=== PATIENT | male | born 1950 | race Caucasian/White ===

== ENCOUNTER 2018-09-17 12:58 | Observation (INO) | payer OTHER, BC ==
--- OUTSIDE RECORDS SUMMARY | 2018-09-17 13:02 | XMS REPORT | Continuity of Care Document ---
:1950 Author Organization Interface Problems Problem Status Onset Classification Date Comments Source Date Reported , PAIN IN Active [facility] LEFT HIP, 8 [facility] UNILATERAL PRIM Osteoarthritis< Active Problem 11/02/[address] 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 UNSPECIFIED [facility] Medications Medication Details Route Status Patient Ordering Order Source Instructions Provider Date Acetaminophen 1 tab, PO, Active 325 MG / Q4-6H, PRN Pain, 2017 [facility] Hydrocodone X 5 day, # 50 [facility] Bitartrate 10 MG tab, 0 Oral Tablet Refill(s), given [[place] 10/325] to patient gabapentin 300 300 mg=1 cap, Active MG Oral Capsule PO, Bedtime, for 2017 [facility] nerve pain. [place] increase to BID PRN, # 15 cap, 0 Refill(s) meloxicam 15 mg 15 mg=1 tab, PO, Active oral tablet Daily, # 30 tab, 2017 [facility] 0 Refill(s) [facility] cefadroxil 500 500 mg=1 cap, Active mg oral capsule PO, Q12H, X 7 2017 [facility] day, # 14 cap, 0 City Refill(s) Aspirin 81 MG 81 mg=1 tab, PO, Active Enteric Coated BID, # 60 tab, 0 2017 [facility] Tablet Refill(s) [facility] meloxicam 15 mg, 2 tab, Inactive Route: PO, Drug 2017 [facility] form: TAB, City Daily, Dosing Weight 92.727, kg, Start date: 10/30/17 9:00:00 CDT, Duration: 30 day, Stop date: 11/28/17 9:00:00 CDTNotes: (Same as: Brissa) Aspirin 325 MG 325 mg, 1 tab, Inactive Enteric Coated Route: PO, Drug 2017 [facility] Tablet form: ECTAB, City Daily, Dosing Weight 92.727, kg, Start date: 10/30/17 9:00:00 CDT, Duration: 30 day, Stop date: 11/28/17 9:00:00 CDTNotes: (Do Not Crush) Do not crush or chew. Sodium Chloride 1 drp, Route: No Longer 0.854 MEQ/ML BOTH EYES, BID, [address] Ophthalmic Drug form: SOLN, [facility] Solution [[facility] Start date: 128] 10/29/17 21:30:00 CDT, Duration: 30 day, Stop date: 11/28/17 17:00:00 CDTNotes: Ophthalmic solution (Same as: Adsorbonac, [facility] 128) Restasis 1 drp, Route: No Longer BOTH EYES, Q12H, [address] Drug form: DROP, [facility] Start date: 10/29/17 21:00:00 CDT, Duration: 30 day, Stop date: 11/28/17 9:00:00 CDTNotes: (Same as: Restasis) gabapentin 300 300 mg, 1 cap, No Longer MG Oral Capsule Route: PO, Drug [address] form: CAP, [facility] Bedtime, Dosing Weight 92.727, kg, Start date: 10/29/17 21:00:00 CDT, Duration: 30 day, Stop date: 11/27/17 21:00:00 CDTNotes: (Same as: Neurontin) Saline Flush 10 ml, Route: No Longer 0.9% IVP, Drug Form: [address] INJ, Dosing [facility] Weight 92.727, kg, Q12H, Start date: 10/29/17 21:00:00 CDT, Duration: 30 day, Stop date: 11/28/17 9:00:00 CDTNotes: preservative free. Mupirocin 1 appl, Route: No Longer NASAL, Q12H, [address] Drug form: OINT, [facility] Start date: 10/29/17 21:00:00 CDT, Duration: 30 day, Stop date: 11/28/17 9:00:00 CDT Vancomycin 1.25 gm, Route: No Longer IVPB, [id number], Active 2018 [facility] Dosing Weight [facility] 92.727, kg, Time Critical Medication, Start date: 10/29/17 18:30:00 CDT, Duration: 2 doses or times, Stop date: 10/30/17 6:30:00 CDT, Pharmacy to adjust dose for renal function, ABX Indication: Surgical Pro...Notes: TIME CRITICAL MEDICATION (Same As: Vancocin) Infusion rate 2001 mg: infuse over 2.5 hours For adult patients only: Round to nearest 250 mg per Medical Staff approval MEDICATION WASTE Product Size: 1000 mg Product Wasted: ___ mg Docusate Sodium 100 mg, 1 cap, No Longer 100 MG Oral Route: PO, Drug [address] Capsule form: CAP, BID, [facility] Dosing Weight 92.727, kg, Start date: 10/29/17 17:00:00 CDT, Duration: 30 day, Stop date: 11/28/17 9:00:00 CDTNotes: (Same as: Colace) (Do Not Crush) Ofirmev 1,000 mg, 2 tab, No Longer Route: PO, Drug [address] form: TAB, Q8H, [facility] Dosing Weight 92.727, kg, for > or=50 kg, Start date: 10/29/17 16:00:00 CDT, Duration: 30 day, Stop date: 11/28/17 8:00:00 CDTNotes: Max acetaminophen 4000 mg/day (4 gm/day). (Same as: Tylenol Extra Strength) Cefazolin 2 gm, Route: No Longer IVPB, [id number], Active 2017 [facility] Dosing Weight [facility] 92.727, kg, Start date: 10/29/17 13:30:00 CDT, Duration: 3 doses or times, Stop date: 10/30/17 1:30:00 CDT, ABX Indication: Surgical ProphylaxisNotes : (Same As: Charlotte Velasquez) MEDICATION WASTE Product Size: 1000 mg Product Wasted: ___ mg Acetaminophen 2 tab, Route: No Longer 325 MG / PO, Drug Form: [address] Hydrocodone TAB, Dosing [facility] Bitartrate 10 MG Weight 92.727, Oral Tablet kg, Q4H, PRN [[place] 10/325] Pain Score 7-10, Start date: 10/29/17 9:24:00 CDT, Duration: 30 day, Stop date: 11/28/17 9:23:00 CDTNotes: Do not exceed 4gm/day of acetaminophen. (Same as: [place] 325/10) Benadryl 25 mg, 1 cap, No Longer Route: PO, Drug Active 2017 [facility] form: CAP, [facility] Bedtime, Dosing Weight 92.727, kg, PRN Insomnia, Start date: 10/29/17 9:24:00 CDT, Duration: 30 day, Stop date: 11/28/17 9:23:00 CDTNotes: (Same as: Benadryl) Ondansetron 4 mg, Route: Inactive IVP, Drug form: 2017 [facility] INJ, Q8H, Dosing City Weight 92.727, kg, PRN Nausea, Start date: 10/29/17 9:24:00 CDT, Duration: 30 day, Stop date: 11/28/17 9:23:00 CDT Bisacodyl 10 mg, 2 tab, No Longer Route: PO, Drug Active 2017 [facility] form: ECTAB, [place] Daily, Dosing Weight 92.727, kg, PRN Constipation, Start date: 10/29/17 9:24:00 CDT, Duration: 30 day, Stop date: 11/28/17 9:23:00 CDTNotes: (Same As: Dulcolax, Correctol) (Do Not Crush) "Do Not Crush" Morphine 4 mg, 1 mL, No Longer Route: IVP, Drug Active 2017 [facility] form: SOLN, Q6H, [facility] Dosing Weight 92.727, kg, PRN Pain Score 7-10, Start date: 10/29/17 9:24:00 CDT, Stop date: 11/28/17 9:23:00 CDTNotes: (Same as:MORPhine Sulfate) 24 HR tramadol 100 mg, 2 tab, No Longer hydrochloride Route: PO, Drug Active 2017 [facility] 100 MG Extended form: TAB, Q6H, City Release Tablet PRN Pain Score 6-10, Start date: 10/29/17 9:24:00 CDT, Duration: 30 day, Stop date: 11/28/17 9:23:00 CDTNotes: Not to exceed 400mg/day. (Same As: Ultram) Saline Flush 10 ml, Route: No Longer 0.9% IVP, Drug Form: [address] INJ, Dosing [facility] Weight 92.727, kg, PRN, PRN Line Flush, Start date: 10/29/17 9:24:00 CDT, Duration: 30 day, Stop date: 11/28/17 9:23:00 CDTNotes: preservative free. Acetaminophen 1 tab, Route: No Longer 325 MG / PO, Drug Form: [address] Hydrocodone TAB, Dosing [facility] Bitartrate 5 MG Weight 92.727, Oral Tablet kg, Q4H, PRN [[place] 5/325] Pain Score 1-3, Start date: 10/29/17 9:24:00 CDT, Duration: 30 day, Stop date: 11/28/17 9:23:00 CDTNotes: (Same as: [place] 325/5) Do not exceed 4gm/day of acetaminophen. Lactated Ringers 1,000 mL, Rate: No Longer IV 1,000 mL 75 ml/hr, Infuse [address] over: 13.3 hr, [facility] Route: IV, Dosing Weight 92.727 kg, Total Volume: 1,000, Start date: 10/29/17 9:24:00 CDT, Duration: 30 day, Stop date: 11/28/17 9:23:00 CDT, 2.18, m2 ketOROLAC (ANES) IV, ONCE Inactive [address] dexamethasone Route: IV, Drug Inactive (ANES) form: INJ, ONCE, 2017 [facility] Stop date: [facility] 10/29/17 9:00:00 CDT Ondansetron 4 MG 4 mg, 1 tab, Inactive Disintegrating Route: PO, Drug 2017 [facility] Tablet form: TABDIS, [facility] Q8H, Dosing Weight 92.727, kg, Start date: 10/29/17 8:00:00 CDT, Duration: 30 day, Stop date: 11/28/17 0:00:00 CDTNotes: (Same as: Zofran ODT) ceFAZolin (ANES) Route: IV, Drug Inactive form: INJ, ONCE, 2017 [facility] Stop date: [facility] 10/29/17 7:53:00 CDT ePHEDrine (ANES) Route: IV, Drug Inactive form: INJ, ONCE, 2017 [facility] Stop date: [facility] 10/29/17 7:43:00 CDT bupivacaine Route: Inactive 10/29/ (ANES) INTRATHECAL, 2017 [facility] Drug Form: INJ, [facility] ONCE, Stop date: 10/29/17 7:38:00 CDT morphine Sulfate Route: Inactive 10/29/ (ANES) INTRATHECAL, 2017 [facility] Drug form: INJ, City ONCE, Stop date: 10/29/17 7:38:00 CDT lidocaine (ANES) Route: IV, Drug Inactive form: INJ, ONCE, 2017 [facility] Stop date: [facility] 10/29/17 7:38:00 CDT midazolam (ANES) Route: IV, Drug Inactive form: SOLN, 2017 [facility] ONCE, Stop date: [facility] 10/29/17 7:28:00 CDT acetaminophen Route: IV, Drug Inactive (ANES) 10 mg form: INJ, Start 2017 [facility] date: 10/29/17 [facility] 7:27:00 CDT, Stop date: 10/29/17 8:27:00 CDT Naloxone 0.4 mg, 1 mL, Inactive Route: IVP, Drug 2017 [facility] form: INJ, City Q2MIN, Dosing Weight 92.727, kg, PRN Narcotic Reversal, Start date: 10/29/17 7:23:00 CDT, Duration: 8 doses or times, Stop date: Limited # of timesNotes: Same as Narcan Atropine 0.2 mg, 0.5 mL, Inactive Route: IVP, Drug 2017 [facility] form: INJ, City Q5Min, Dosing Weight 92.727, kg, PRN Other -See Comment, as needed; for symptomatic pulse rate Notes: MEDICATION WASTE Product Size: 0.4 mg Product Wasted: ___ mg Ephedrine 5 mg, 1 mL, Inactive Route: IVP, Drug 2017 [facility] form: INJ, City Q5Min, Dosing Weight 92.727, kg, PRN Low Blood Pressure, Start date: 10/29/17 7:23:00 CDT, Duration: 30 day, Stop date: 11/28/17 7:22:00 CDTNotes: final concentration 5 mg/mL Glycopyrrolate 0.2 mg, 1 mL, Inactive Route: IVP, Drug 2017 [facility] form: INJ, City Q5Min, Dosing Weight 92.727, kg, PRN Bradycardia, Start date: 10/29/17 7:23:00 CDT, Duration: 3 doses or times, Stop date: Limited # of timesNotes: (Same as: Patsy) Meperidine 12.5 mg, 0.25 Inactive mL, Route: IV2017 [facility] Drug form: INJ, City Q30Min, Dosing Weight 92.727, kg, PRN Other -See Comment, For shivering, Start date: 10/29/17 7:23:00 CDT, Duration: 2 doses or times, Stop date: Limited # of timesNotes: (Same As: Demerol) Hydromorphone 0.5 mg, 0.25 mL, Inactive Route: IVP, Drug 2017 [facility] form: INJ, City Q5Min, Dosing Weight 92.727, kg, PRN Pain Score 7-10, Start date: 10/29/17 7:23:00 CDT, Duration: 4 doses or times, Stop date: Limited # of timesNotes: Same as Dilaudid Flumazenil 0.2 mg, 2 mL, Inactive Route: IVP, Drug 2017 [facility] form: INJ, PRN, City Dosing Weight 92.727, kg, PRN Benzodiazepine Reversal, Initial dose, Start date: 10/29/17 7:23:00 CDT, Duration: 30 day, Stop date: 11/28/17 7:22:00 CDTNotes: (Same as: Romazicon) Morphine 2 mg, 0.5 mL, Inactive Route: IVP, Drug 2017 [facility] form: SOLN, City Q5Min, Dosing Weight 92.727, kg, PRN Pain Score 4-6, Start date: 10/29/17 7:23:00 CDT, Duration: 5 doses or times, Stop date: Limited # of timesNotes: (Same as:MORPhine Sulfate) Promethazine 6.25 mg, 0.25 Inactive mL, Route: IVPB, 2017 [facility] ONCE, Dosing City Weight 92.727, kg, PRN Nausea & Vomiting, Start date: 10/29/17 7:23:00 CDTNotes: Do not give IV push. (Same as: Phenergan) Dexamethasone 4 mg, 1 mL, Inactive Route: IVP, Drug 2017 [facility] form: INJ, ONCE, [facility] Dosing Weight 92.727, kg, PRN Nausea & Vomiting, Start date: 10/29/17 7:23:00 CDTNotes: Concentration: 4mg/ml Ondansetron 4 mg, 2 mL, Inactive Route: IVP, Drug 2017 [facility] form: INJ, ONCE, [facility] Dosing Weight 92.727, kg, PRN Nausea & Vomiting, Start date: 10/29/17 7:23:00 CDTNotes: (Same as: Zofran) MEDICATION WASTE Product Size: 4 mg Product Wasted: ___ mg Calcium Chloride 1,000 mL, Rate: Inactive 0.0014 MEQ/ML / 125 ml/hr, 2017 [facility] Potassium Infuse over: 8 [facility] Chloride 0.004 hr, Route: IV, MEQ/ML / Sodium Dosing Weight Chloride 0.103 92.727 kg, Total MEQ/ML / Sodium Volume: 1,000, Lactate 0.028 Start date: MEQ/ML 10/29/17 7:23:00 Injectable CDT, Duration: Solution 30 day, Stop date: 11/28/17 7:22:00 CDT, 2.18, m2 Periactin 4 mg, 1 tab, No Longer Route: PO, Drug Active 2017 [facility] form: TAB, TID, [facility] Dosing Weight 92.727, kg, PRN Itching, Start date: 10/29/17 7:22:00 CDT, Duration: 30 day, Stop date: 11/28/17 7:21:00 CDTNotes: (Same As: Periactin) Benadryl 25 mg, 1 cap, No Longer Route: PO, Drug Active 2017 [facility] form: CAP, TID, [facility] Dosing Weight 92.727, kg, PRN Itching, Start date: 10/29/17 7:22:00 CDT, Duration: 30 day, Stop date: 11/28/17 7:21:00 CDTNotes: (Same as: Benadryl) Naloxone 0.1 mg, 0.25 mL, No Longer Route: IVP, Drug Active 2017 [facility] form: INJ, [facility] Q2MIN, Dosing Weight 92.727, kg, PRN Narcotic Reversal, Start date: 10/29/17 7:22:00 CDT, Duration: 8 doses or times, Stop date: Limited # of timesNotes: Same as Narcan naloxone 400 1,000 mL, Rate: No Longer microgram + 17 microgram/hr, Active 2017 [facility] Sodium Chloride Route: IV, [facility] 0.9% IV 1,000 mL Dosing Weight 92.727 kg, Total Volume: 1,001 mL, PRN itching, Start date: 10/29/17 7:22:00 CDT, Duration: 30 day, Stop date: 11/28/17 7:21:00 CDT, 2.18, [id number]: Same as Narcan tranexamic acid Route: IV, Drug Inactive (ANES) 100 mg form: INJ, Start 2017 [facility] date: 10/29/17 [facility] 7:12:00 CDT, Stop date: 10/29/17 8:12:00 CDT propofol (ANES) Route: IV, Drug Inactive 10 mg form: INJ, 2017 [facility] date: 10/29/17 [facility] 7:05:00 CDT, Stop date: 10/29/17 8:05:00 CDT Lactated Ringers Route: IV, Total Inactive Injection IV Volume: 1,000, 2017 [facility] (ANES) 1000 mL Start date: [facility] 10/29/17 6:48:00 CDT, Stop date: 10/29/17 7:48:00 CDT vancomycin Route: IV, Drug Inactive (ANES) 1.5 gm form: INJ, Start 2017 [facility] date: 10/29/17 [facility] 6:35:00 CDT, Stop date: 10/29/17 7:35:00 CDT Zofran ODT 4 mg, Route: PO, Inactive PRE OP, Dosing 2018 [facility] Weight 92.727, City kg, Start date: 10/29/17 6:00:00 CDT, Duration: 30 day, Stop date: 11/28/17 5:59:00 CDT Cyklokapron + 1,000 mg, 10 mL, Inactive Sodium Chloride Route: IVPB, 2017 [facility] 0.9% IV 100 mL PRN, PRN See [facility] Nurse's Notes, Start date: 10/29/17 0:00:00 CDT, Duration: 2 doses or times, Stop date: 10/29/17 23:59:00 CDTNotes: (Same As: Cyklokapron) Lyrica 75 mg, 1 cap, Inactive Route: PO, Drug 2017 [facility] form: CAP, PRE [facility] OP, Start date: 10/29/17 0:00:00 CDT, Duration: 1 day, Stop date: 10/29/17 23:59:00 CDTNotes: (Same as: Lyrica) Zofran ODT 4 mg, 1 tab, No Longer Route: PO, Drug Active 2017 [facility] form: TABDIS, [facility] PRE OP, Start date: 10/29/17 0:00:00 CDT, Duration: 1 day, Stop date: 10/29/17 23:59:00 CDTNotes: (Same as: Zofran ODT) famotidine 20 mg, 1 tab, Inactive Route: PO, Drug 2017 [facility] form: TAB, PRE [facility] OP, Start date: 10/29/17 0:00:00 CDT, Duration: 1 day, Stop date: 10/29/17 23:59:00 CDTNotes: (Same as: Pepcid) dexamethasone 4 mg, 1 mL, Inactive Route: IVP, Drug 2017 [facility] form: INJ, PRE [facility] OP, Start date: 10/29/17 0:00:00 CDT, Duration: 1 day, Stop date: 10/29/17 23:59:00 CDTNotes: Concentration: 4mg/ml ceFAZolin + 2 gm, Route: IV, No Longer sterile water 20 PRE OP, Start Active 2017 [facility] mL date: 10/29/17 [facility] 0:00:00 CDT, Duration: 1 day, Stop date: 10/29/17 23:59:00 CDT, ABX Indication: Surgical ProphylaxisNotes : (Same As: Charlotte Velasquez) MEDICATION WASTE Product Size: 1000 mg Product Wasted: ___ mg Ofirmev 1,000 mg, 100 No Longer mL, Route: IV, [facility] 2017 [facility] Drug form: INJ, [facility] PRE OP, Start date: 10/29/17 0:00:00 CDT, Duration: 1 day, Stop date: 10/29/17 23:59:00 CDTNotes: Infuse over 15 minutes Do not exceed 4gm/day of acetaminophen MEDICATION WASTE Product Size: 1000 mg Product Wasted: ___ mg CeleBREX 400 mg, 2 cap, Inactive Route: PO, Drug 2017 [facility] form: CAP, PRE [facility] OP, Start date: 10/29/17 0:00:00 CDT, Duration: 1 day, Stop date: 10/29/17 23:59:00 CDTNotes: NSAID. Please check indication. Not for seizure. (Same As: CeleBREX) vancomycin 1.5 gm, 250 mL, No Longer Route: IVPB, [facility] 2017 [facility] Drug form: INJ, [facility] PRE OP, Start date: 10/29/17 0:00:00 CDT, Duration: 1 day, Stop date: 10/29/17 23:59:00 CDT, ABX Indication: Surgical ProphylaxisNotes : TIME CRITICAL MEDICATION Same as: Vancocin-NS (premixed) Infusion rate 2001 mg: infuse over 2.5 hours Aleve 220 mg, PO, 0 Active Refill(s) 2017 [facility] Chondroitin 800 mg, PO, Active Sulfates Daily, 0 2017 [facility] Refill(s) [facility] Glucosamine PO, 0 Refill(s) Active 042017 [facility] tramadol 50 mg=1 tab, PO, Active hydrochloride 50 PRN, 0 Refill(s) 2017 [facility] MG Oral Tablet [facility] Co Q-10 100 mg, PO, Active Daily, 0 2017 [facility] Refill(s) [facility] Sodium Chloride 1 drop, BOTH Active 0.854 MEQ/ML EYES, BID, 0 2017 [facility] Ophthalmic Refill(s) [facility] Solution [[place] 128] Restasis 1 drp, BOTH Active EYES, Q12H, 0 2017 [facility] Refill(s) [facility] Allergies, Adverse Reactions, Alerts Substance Category Reaction Severity Reaction Status Date Comments Source type Reported Immunizations Immunization Date Site Status Last Comments Source Given Updated pneumococcal Right completed [facility] 23-valent vaccine 1 Deltoid [facility] meningococcal Abdomen, completed [facility] polysaccharide 1 [facility] vaccine quadrant, lt Results Order Name Results Value Reference Date Interpretation Comments Source Range CHEM PANEL B/C Ratio 18 6 - 25 10/30 [facility] CHEM PANEL AGAP 14.9 meq/L 10.0 - 10/30 20.0 [facility] CHEM PANEL Globulin 2.8 g/dL 2.7 - 4.2 10/30 [facility] CHEM PANEL A/G Ratio 1.0 0.7 - 1.6 10/30 [facility] CHEM PANEL Sodium Lvl 144 meq/L 135 - 145 10/30 [facility] CHEM PANEL Potassium 4.9 meq/L 3.5 - 5.1 10/30 Lvl [facility] CHEM PANEL Albumin Lvl 2.9 g/dL 3.5 - 5.0 10/30 [facility] CHEM PANEL Chloride Lvl 110 meq/L 95 - 109 10/30 [facility] CHEM PANEL eGFR 81 10/30 Result Comment: The eGFR is calculated using the CKD-EPI formula. In most young, healthy individuals the eGFR will be >90 mL/ min/1.73m2. The eGFR declines with age. An eGFR of 60-89 may be normal in mL/min/1. some populations, particularly the elderly, for whom the CKD-EPI formula has not been extensively validated. Use of the eGFR is not recommended in the following populations: [address] Individuals with unstable creatinine concentrations, including patients and those with serious co-morbid conditions. Patients with extremes in muscle mass or diet. The data above are obtained from the National Kidney Disease Education Program (NKDEP) which additionally recommends that when the eGFR is used in patients with extremes of body mass index for purposes of drug dosing, the eGFR should be multiplied by the estimated BMI. CHEM PANEL AST 24 unit/L 0 - 37 05 [facility] CHEM PANEL CO2 24 meq/L 24 - 32 10/30 [facility] CHEM PANEL ALT 20 unit/L 0 - 65 10/30 [facility] CHEM PANEL Creatinine 0.96 mg/dL 0.50 - 05 Lvl 1.40 /2017 [facility] CHEM PANEL Calcium Lvl 8.8 mg/dL 8.5 - 10.5 10/30 [facility] CHEM PANEL BUN 17 mg/dL 7 - 22 10/30 [facility] CHEM PANEL Glucose Lvl 119 mg/dL 70 - 99 10/30 [facility] CHEM PANEL Total 5.7 g/dL 6.4 - 8.4 10/30 [facility] CHEM PANEL Alk Phos 75 unit/L 39 - 136 05 [facility] CHEM PANEL Bili Total 0.7 mg/dL 0.2 - 1.3 10/30 [facility] HEMATOLOGY Segs-Bands # 14.6 K/CMM 1.5 - 8.1 10/30 [facility] HEMATOLOGY Monocytes # 2.0 K/CMM 0.0 - 0.8 10/30 [facility] HEMATOLOGY Lymphocytes 1.7 K/CMM 1.0 - 5.5 / [facility] HEMATOLOGY Basophils 0.2 % 0.0 - 1.0 10/30 [facility] HEMATOLOGY Eosinophils 0.1 % 0.0 - 4.0 10/30 [facility] HEMATOLOGY Monocytes 10.8 % 2.0 - 12.0 10/30 [facility] HEMATOLOGY Lymphocytes 9.2 % 20.0 - 10/30 MH 40.0 [facility] HEMATOLOGY Segs 79.7 % 45.0 - 05/ MH 75.0 [facility] HEMATOLOGY MCV 88.6 fL 80.0 - 10/30 MH 94.0 [facility] HEMATOLOGY Hct 35.6 % 42.0 - 10/30 MH 54.0 /2017 [facility] HEMATOLOGY Hgb 12.1 g/dL 14.0 - 10/30 MH 18.0 [facility] HEMATOLOGY WBC 18.4 K/CMM 3.7 - 10.4 10/30 /2017 [facility] MPV 7.5 fL 7.4 - 10.4 10/30 /2017 [facility] HEMATOLOGY MCHC 33.9 g/dL 32.0 - 10/30 MH 36.0 [facility] HEMATOLOGY MCH 30.1 pg 27.0 - 10/30 MH 31.0 [facility] HEMATOLOGY Platelet 316 K/CMM 133 - 450 10/30 /2017 [facility] HEMATOLOGY RDW 13.3 % 11.5 - 10/30 MH 14.5 [facility] HEMATOLOGY RBC 4.02 M/CMM 4.70 - 10/30 MH 6.10 [facility] BLOOD BANK Antibody Negative 10/29 RESULTS Scr [facility] (10/29/17 5:18 AM) [facility] BLOOD BANK ABO/Rh A POS 10/29 RESULTS /2017 [facility] Pelvis AP Pelvis AP DX Pelvis One view: 10/29/201710/29 - /2017 [facility] Indication:67 years Male Limitation of movement - [facility] Comparison: 10/29/2017 at 7:45 Read by: Eric Whelan MD Dictated Date/time: 10/29/17 13:45 Technique: Single limited AP view of the pelvis performed intraoperatively. Electronically Signed by: Eric Whelan MD 10/29/17 13:46 FINAL REPORT Findings: there is interval left total hip prosthesis with final hardware placement in near-anatomic alignment. There is expected moderate hip effusion. No evidence of acute bony abnormality. Intraoperative monitoring and tubing overlie the film. Impression: Final hardware for lefttotal hip prosthesis in near anatomic position. Pelvis AP Pelvis AP DX EXAM: AP PELVIS 10/29 - DX /2017 - [facility] INDICATION: hip replacement Read by: Solo Farley MD Dictated Date/time: 10/29/17 08:28 Electronically Signed by: Solo Farley MD 10/29/17 08:29 FINAL REPORT COMPARISON: None TECHNIQUE: A single AP supine radiograph of the pelvis was performed intraoperatively. FINDINGS/ IMPRESSION: Placement of left hip arthroplasty sizing device. Expected postsurgical changes. BACTERIAL - MRSA by PCR Negative 10/15 [facility]OLOGY [facility]s Vital Sign Value Date Comments Source Heart Rate 56 10/30/2017 [facility] Temperature Oral (F) 97.3 F 10/30/2017 [facility] Systolic (mm Hg) 146 10/30/2017 [facility] Diastolic (mm Hg) 79 10/30/2017 [facility] Respitory Rate 17 10/30/2017 [facility] Respitory Rate 16 10/30/2017 [facility] Systolic (mm Hg) 119 10/30/2017 [facility] Diastolic (mm Hg) 73 10/30/2017 [facility] [facility] Heart Rate 52 10/30/2017 [facility] Temperature Oral (F) 97.7 F 10/30/2017 [facility] Respitory Rate 18 10/30/2017 [facility] Systolic (mm Hg) 132 10/30/2017 [facility] Diastolic (mm Hg) 66 10/30/2017 [facility] Heart Rate 62 10/30/2017 [facility] Temperature Oral (F) 97.7 F 10/30/2017 [facility] Weight 92.409 10/29/2017 [facility] BMI Calculated 27.73 10/15/2017 [facility] Height 182.88 cm 10/15/2017 [facility] Weight 92.727 10/15/2017 [facility] Encounters Location Location Encounter Encounter Reason Attending ADM DC Status Source Details Type Number For Provider Date Date Visit [facility] Inpatient [id number] Roman 10/29 10/30 José Miguel Oconnorer /2017 [facility] Procedures Procedure Code Date Perfomer Comments Source Appendectomy [id number] [facility] Colonoscopy [id number] [facility] Procedure<sup>1</gipson [id number] Sinus surgery [facility] [place] Procedure<sup>2</gipson [id number] right eye [facility] [place] [facility] correct muscle imbalance x 2 Splenectomy [id number] [facility] Tonsillectomy [id number] [facility]
--- OUTSIDE RECORDS SUMMARY | 2018-09-17 13:03 | XMS REPORT | Summary of Care ---
:1950 Author Organization [facility] Address [address] [place] [id number]- Encounter HQ Carey_dalton(FIN) [id number] Date(s): 10/29/17 - 10/30/[address] [address]- Discharge Disposition: Home or Self Care Attending Physician: Roman Beck MD Admitting Physician: Roman Beck MD Referring Physician: Roman Beck MD Vital Signs Most recent to oldest 1 2 3 [Reference Range]: Height 182.88 cm (10/15/17 12:29 PM) Temperature Oral [96.4-99.1 97.3 DegF 97.7 DegF 97.7 DegF DegF] (10/30/17 12:00 PM) (10/30/17 4:12 AM) (10/30/17 12:15 AM) Blood Pressure [90-140/60-90 146/79 mmHg 119/73 mmHg 132/66 mmHg mmHg] *HI* (10/30/17 7:41 AM) (10/30/17 4:12 AM) (10/30/17 12:00 PM) Respiratory Rate [14-20 17 BRMIN 16 BRMIN 18 BRMIN BRMIN] (10/30/17 12:00 PM) (10/30/17 7:41 AM) (10/30/17 4:12 AM) Peripheral Pulse Rate [60-100 56 bpm 52 bpm 62 bpm bpm] *LOW* *LOW* (10/30/17 4:12 AM) (10/30/17 12:00 PM) (10/30/17 7:41 AM) Weight 92.409 kg 92.727 kg (10/29/17 10:29 AM) (10/15/17 12:29 PM) Body Mass Index 27.73 m2 (10/15/17 12:29 PM) Problem List Condition Effective Dates Status Health Status Informant Osteoarthritis(Confirmed)1 Active Pain(Confirmed) Active Splenectomy(Confirmed) Active 1left hip Allergies, Adverse Reactions, Alerts Substance Reaction Severity Status NKDA Active Medications acetaminophen (ANES) 10 mg Route: IV, Drug form: INJ, Start date: 10/29/17 7:27:00 CDT, Stop date: 8:27:00 CDT Start Date: 10/29/17 Stop Date: 10/29/17 Status: CompletedAleve 220 mg, PO, 0 Refill(s) Start Date: 10/15/17 Status: OrderedANES atropine 0.2 mg, 0.5 mL, Route: IVP, Drug form: INJ, Q5Min, Dosing Weight 92.727, kg, PRN Other -See Comment,as needed; for symptomatic pulse rate < 80% of mean 50 BPM, Start date: 10/29/17 7:23:00 CDT, Duration: 30 day, Stop date: 11/28/17 7:22:00 CDT Notes: MEDICATION WASTE Product Size: 0.4 mgProduct Wasted: ___ mg Start Date: 10/29/17 Stop Date: 10/29/17 Status: DiscontinuedANES dexamethasone 4 mg, 1 mL, Route: IVP, Drug form: INJ, ONCE, Dosing Weight 92.727, kg, PRN Nausea & Vomiting, Start date: 10/29/17 7:23:00 CDT Notes: Concentration: 4mg/ml Start Date: 10/29/17 Stop Date: 10/29/17 Status: DiscontinuedANES ePHEDrine 5 mg, 1 mL, Route: IVP, Drug form: INJ, Q5Min, Dosing Weight 92.727, kg, PRN Low Blood Pressure, Start date: 10/29/17 7:23:00 CDT, Duration: 30 day, Stop date: 11/28/17 7:22:00 CDT Notes: final concentration 5 mg/mL Start Date: 10/29/17 Stop Date: 10/29/17 Status: DiscontinuedANES flumazenil 0.2 mg, 2 mL, Route: IVP, Drug form: INJ, PRN, Dosing Weight 92.727, kg, PRN Benzodiazepine Reversal, Initial dose, Start date: 10/29/17 7:23:00 CDT, Duration: 30 day, Stop date: 11/28/17 7:22:00 CDT Notes: (Same as: Romazicon) Start Date: 10/29/17 Stop Date: 10/29/17 Status: DiscontinuedANES glycopyrrolate 0.2 mg, 1 mL, Route: IVP, Drug form: INJ, Q5Min, Dosing Weight 92.727, kg, PRN Bradycardia, Start date: 10/29/17 7:23:00 CDT, Duration: 3 doses or times, Stop date: Limited # of times Notes: (Same as: Robernaul) Start Date: 10/29/17 Stop Date: 10/29/17 Status: DiscontinuedANES HYDROmorphone 0.5 mg, 0.25 mL, Route: IVP, Drug form: INJ, Q5Min, Dosing Weight 92.727, kg, PRN Pain Score 7-10, Start date: 10/29/17 7:23:00 CDT, Duration: 4 doses or times, Stop date: Limited # of times Notes: Same as Dilaudid Start Date: 10/29/17 Stop Date: 10/29/17 Status: DiscontinuedANES meperidine 12.5 mg, 0.25 mL, Route: IVP, Drug form: INJ, Q30Min, Dosing Weight 92.727, kg, PRN Other -See Comment, For shivering, Start date: 10/29/17 7:23:00 CDT, Duration: 2 doses or times, Stop date: Limited #of times Notes: (Same As: Demerol) Start Date: 10/29/17 Stop Date: 10/29/17 Status: DiscontinuedANES morphine Sulfate 2 mg, 0.5 mL, Route: IVP, Drug form: SOLN, Q5Min, Dosing Weight 92.727, kg, PRN Pain Score 4-6, Start date: 10/29/17 7:23:00 CDT, Duration: 5 doses or times, Stop date: Limited # of times Notes: (Same as:MORPhine Sulfate) Start Date: 10/29/17 Stop Date: 10/29/17 Status: DiscontinuedANES naloxone 0.4 mg, 1 mL, Route: IVP, Drug form: INJ, Q2MIN, Dosing Weight 92.727, kg, PRN Narcotic Reversal, Start date: 10/29/17 7:23:00 CDT, Duration: 8 doses or times , Stop date: Limited # of times Notes: Same as Narcan Start Date: 10/29/17 Stop Date: 10/29/17 Status: DiscontinuedANES ondansetron 4 mg, 2 mL, Route: IVP, Drug form: INJ, ONCE, Dosing Weight 92.727, kg, PRN Nausea & Vomiting, Start date: 10/29/17 7:23:00 CDT Notes: (Same as: Jf) MEDICATION WASTE Product Size: 4 mgProduct Wasted: ___ mg Start Date: 10/29/17 Stop Date: 10/29/17 Status: DiscontinuedANES promethazine + Sodium Chloride 0.9% IV 50 mL 6.25 mg, 0.25 mL, Route: IVPB, ONCE, Dosing Weight 92.727, kg, PRN Nausea & Vomiting, Start date: 10/29/17 7:23:00 CDT Notes: Do not give IV push. (Same as: Phenergan) Start Date: 10/29/17 Stop Date: 10/29/17 Status: Discontinuedaspirin 325 mg tablet, enteric coated 325 mg, 1 tab, Route: PO, Drug form: ECTAB, Daily, Dosing Weight 92.727, kg, Start date: 10/30/17 9:00:00 CDT, Duration: 30 day, Stop date: 11/28/17 9:00:00 CDT Notes: (Do Not Crush) Do not crush or chew. Start Date: 10/30/17 Stop Date: 10/30/17 Status: Discontinuedaspirin 81 mg tablet, enteric coated 81 mg=1 tab, PO, BID, # 60 tab, 0 Refill(s) Start Date: 10/30/17 Stop Date: 11/29/17 Status: OrderedBenadryl 25 mg, 1 cap, Route: PO, Drug form: CAP, TID, Dosing Weight 92.727, kg, PRN Itching, Start date: 10/29/17 7:22:00 CDT, Duration: 30 day, Stop date: 7:21:00 CDT Notes: (Same as: Benadryl) Start Date: 10/29/17 Stop Date: 10/30/17 Status: DiscontinuedBenadryl 25 mg, 1 cap, Route: PO, Drug form: CAP, Bedtime, Dosing Weight 92.727, kg, PRN Insomnia, Start date: 10/29/17 9:24:00 CDT, Duration: 30 day, Stop date: 9:23:00 CDT Notes: (Same as: Benadryl) Start Date: 10/29/17 Stop Date: 10/30/17 Status: DiscontinuedBenadryl 25 mg, 1 cap, Route: PO, Drug form: CAP, TID, Dosing Weight 92.727, kg, PRN Itching, Start date: 10/29/17 9:24:00 CDT, Duration: 30 day, Stop date: 9:23:00 CDT Notes: (Same as: Benadryl) Start Date: 10/29/17 Stop Date: 10/30/17 Status: Discontinuedbisacodyl 10 mg, 2 tab, Route: PO, Drug form: ECTAB, Daily, Dosing Weight 92.727, kg, PRN Constipation, Start date: 10/29/17 9:24:00 CDT, Duration: 30 day, Stop date: 12/10 9:23:00 CDT Notes: (Same As: Dulcolax, Correctol) (Do Not Crush) "Do Not Crush" Start Date: 10/29/17 Stop Date: 10/30/17 Status: Discontinuedbupivacaine (ANES) Route: INTRATHECAL, Drug Form: INJ, ONCE, Stop date: 10/29/17 7:38:00 CDT Start Date: 10/29/17 Stop Date: 10/29/17 Status: Completedcefadroxil 500 mg oral capsule 500 mg=1 cap, PO, Q12H, X 7 day, # 14 cap, 0 Refill(s) Start Date: 10/30/17 Stop Date: 11/06/17 Status: OrderedceFAZolin (ANES) Route: IV, Drug form: INJ, ONCE, Stop date: 10/29/17 7:53:00 CDT Start Date: 10/29/17 Stop Date: 10/29/17 Status: CompletedceFAZolin (SCIP) + sterile water 20 mL 2 gm, Route: IVPB, ABXQ6H, Dosing Weight 92.727, kg, Start date: 10/29/17 13:30: 00 CDT, Duration: 3 doses or times, Stop date: 10/30/17 1:30:00 CDT, ABX Indication: Surgical Prophylaxis Notes: (Same As: Charlotte Velasquez) MEDICATION WASTE Product Size: 1000 mgProduct Wasted: ___ mg Start Date: 10/29/17 Stop Date: 10/30/17 Status: CompletedceFAZolin + sterile water 20 mL 2 gm, Route: IV, PRE OP, Start date: 10/29/17 0:00:00 CDT, Duration: 1 day, Stop date: 10/29/17 23:59:00 CDT, ABX Indication: Surgical Prophylaxis Notes: (Same As: Charlotte Velasquez) MEDICATION WASTE Product Size: 1000 mgProduct Wasted: ___ mg Start Date: 10/29/17 Stop Date: 10/30/17 Status: DiscontinuedCeleBREX 400 mg, 2 cap, Route: PO, Drug form: CAP, PRE OP, Start date: 10/29/17 0:00:00 CDT, Duration: 1 day,Stop date: 10/29/17 23:59:00 CDT Notes: NSAID. Please check indication. Not for seizure. (Same As: CeleBREX) Start Date: 10/29/17 Stop Date: 10/29/17 Status: Completedchondroitin 800 mg, PO, Daily, 0 Refill(s) Start Date: 10/15/17 Status: OrderedCo Q-10 100 mg, PO, Daily, 0 Refill(s) Start Date: 10/15/17 Status: OrderedCyklokapron + Sodium Chloride 0.9% IV 100 mL 1,000 mg, 10 mL, Route: IVPB, PRN, PRN See Nurse's Notes, Start date: 10/29/17 0 :00:00 CDT, Duration: 2 doses or times, Stop date: 10/29/17 23:59:00 CDT Notes: (Same As: Cyklokapron) Start Date: 10/29/17 Stop Date: 10/29/17 Status: Completeddexamethasone 4 mg, 1 mL, Route: IVP, Drug form: INJ, PRE OP, Start date: 10/29/17 0:00:00 CDT , Duration: 1 day, Stop date: 10/29/17 23:59:00 CDT Notes: Concentration: 4mg/ml Start Date: 10/29/17 Stop Date: 10/29/17 Status: Completeddexamethasone (ANES) Route: IV, Drug form: INJ, ONCE, Stop date: 10/29/17 9:00:00 CDT Start Date: 10/29/17 Stop Date: 10/29/17 Status: Completeddocusate sodium 100 mg oral capsule 100 mg, 1 cap, Route: PO, Drug form: CAP, BID, Dosing Weight 92.727, kg, Start date: 10/29/17 17:00:00 CDT, Duration: 30 day, Stop date: 11/28/17 9:00:00 CDT Notes: (Same as: Colace) (Do Not Crush) Start Date: 10/29/17 Stop Date: 10/30/17 Status: DiscontinuedePHEDrine (ANES) Route: IV, Drug form: INJ, ONCE, Stop date: 10/29/17 7:43:00 CDT Start Date: 10/29/17 Stop Date: 10/29/17 Status: Completedfamotidine 20 mg, 1 tab, Route: PO, Drug form: TAB, PRE OP, Start date: 10/29/17 0:00:00 CDT, Duration: 1 day, Stop date: 10/29/17 23:59:00 CDT Notes: (Same as: Pepcid) Start Date: 10/29/17 Stop Date: 10/29/17 Status: Completedgabapentin 300 mg oral capsule 300 mg=1 cap, PO, Bedtime, for nerve pain. Can increase to BID PRN, # 15 cap, 0 Refill(s) Start Date: 10/30/17 Status: Orderedgabapentin 300 mg oral capsule 300 mg, 1 cap, Route: PO, Drug form: CAP, Bedtime, Dosing Weight 92.727, kg, Start date: 10/29/17 21:00:00 CDT, Duration: 30 day, Stop date: 11/27/17 21:00: 00 CDT Notes: (Same as: Neurontin) Start Date: 10/29/17 Stop Date: 10/30/17 Status: Discontinuedglucosamine PO, 0 Refill(s) Start Date: 10/15/17 Status: OrderedketOROLAC (ANES) IV, ONCE Start Date: 10/29/17 Stop Date: 10/29/17 Status: CompletedLactated Ringers Injection IV (ANES) 1000 mL Route: IV, Total Volume: 1,000, Start date: 10/29/17 6:48:00 CDT, Stop date: 01/09 7:48:00 CDT Start Date: 10/29/17 Stop Date: 10/29/17 Status: CompletedLactated Ringers Injection IV 1,000 mL 1,000 mL, Rate: 125 ml/hr, Infuse over: 8 hr, Route: IV, Dosing Weight 92.727 kg , Total Volume: 1,000, Start date: 10/29/17 7:23:00 CDT, Duration: 30 day, Stop date: 11/28/17 7:22:00 CDT, 2.18, m2 Start Date: 10/29/17 Stop Date: 10/29/17 Status: DiscontinuedLactated Ringers IV 1,000 mL 1,000 mL, Rate: 75 ml/hr, Infuse over: 13.3 hr, Route: IV, Dosing Weight 92.727 kg, Total Volume: 1,000, Start date: 10/29/17 9:24:00 CDT, Duration: 30 day, Stop date: 11/28/17 9:23:00 CDT, 2.18, m2 Start Date: 10/29/17 Stop Date: 10/30/17 Status: Discontinuedlidocaine (ANES) Route: IV, Drug form: INJ, ONCE, Stop date: 10/29/17 7:38:00 CDT Start Date: 10/29/17 Stop Date: 10/29/17 Status: CompletedLyrica 75 mg, 1 cap, Route: PO, Drug form: CAP, PRE OP, Start date: 10/29/17 0:00:00 CDT, Duration: 1 day, Stop date: 10/29/17 23:59:00 CDT Notes: (Same as: Lyrica) Start Date: 10/29/17 Stop Date: 10/29/17 Status: Completedmeloxicam 15 mg, 2 tab, Route: PO, Drug form: TAB, Daily, Dosing Weight 92.727, kg, Start date: 10/30/17 9:00:00 CDT, Duration: 30 day, Stop date: 11/28/17 9:00:00 CDT Notes: (Same as: Mobic) Start Date: 10/30/17 Stop Date: 10/30/17 Status: Discontinuedmeloxicam 15 mg oral tablet 15 mg=1 tab, PO, Daily, # 30 tab, 0 Refill(s) Start Date: 10/30/17 Stop Date: 11/29/17 Status: Orderedmidazolam (ANES) Route: IV, Drug form: SOLN, ONCE, Stop date: 10/29/17 7:28:00 CDT Start Date: 10/29/17 Stop Date: 10/29/17 Status: Completedmorphine Sulfate 4 mg, 1 mL, Route: IVP, Drug form: SOLN, Q6H, Dosing Weight 92.727, kg, PRN Pain Score 7-10, Start date: 10/29/17 9:24:00 CDT, Stop date: 11/28/17 9:23:00 CDT Notes: (Same as:MORPhine Sulfate) Start Date: 10/29/17 Stop Date: 10/30/17 Status: Discontinuedmorphine Sulfate (ANES) Route: INTRATHECAL, Drug form: INJ, ONCE, Stop date: 10/29/17 7:38:00 CDT Start Date: 10/29/17 Stop Date: 10/29/17 Status: Completedmupirocin topical 1 appl, Route: NASAL, Q12H, Drug form: OINT, Start date: 10/29/17 21:00:00 CDT, Duration: 30 day, Stop date: 11/28/17 9:00:00 CDT Start Date: 10/29/17 Stop Date: 10/30/17 Status: DiscontinuedMuro 128 5% ophthalmic solution 1 drop, BOTH EYES, BID, 0 Refill(s) Start Date: 10/15/17 Status: OrderedMuro 128 5% ophthalmic solution 1 drp, Route: BOTH EYES, BID, Drug form: SOLN, Start date: 10/29/17 21:30:00 CDT , Duration: 30 day, Stop date: 11/28/17 17:00:00 CDT Notes: Ophthalmic solution (Same as: Adsorbonac, Biju 128) Start Date: 10/29/17 Stop Date: 10/30/17 Status: Discontinuednaloxone 0.1 mg, 0.25 mL, Route: IVP, Drug form: INJ, Q2MIN, Dosing Weight 92.727, kg, PRN Narcotic Reversal,Start date: 10/29/17 7:22:00 CDT, Duration: 8 doses or times, Stop date: Limited # of times Notes: Same as Narcan Start Date: 10/29/17 Stop Date: 10/30/17 Status: Discontinuednaloxone 400 microgram + Sodium Chloride 0.9% IV 1,000 mL 1,000 mL, Rate: 17 microgram/hr, Route: IV, Dosing Weight 92.727 kg, Total Volume: 1,001 mL, PRN itching, Start date: 10/29/17 7:22:00 CDT, Duration: 30 day, Stop date: 11/28/17 7:21:00 CDT, 2.18, m2 Notes: Same as Narcan Start Date: 10/29/17 Stop Date: 10/30/17 Status: DiscontinuedNorco 10/325 oral tablet 1 tab, PO, Q4-6H, PRN Pain, X 5 day, # 50 tab, 0 Refill(s), given to patient Start Date: 10/30/17 Stop Date: 11/04/17 Status: OrderedNorco 10/325 oral tablet 2 tab, Route: PO, Drug Form: TAB, Dosing Weight 92.727, kg, Q4H, PRN Pain Score 7-10, Start date: 10/29/17 9:24:00 CDT, Duration: 30 day, Stop date: 11/28/17 9: 23:00 CDT Notes: Do not exceed 4gm/day of acetaminophen. (Same as: [place] 325/10) Start Date: 10/29/17 Stop Date: 10/30/17 Status: DiscontinuedNorco 10/325 oral tablet 1 tab, Route: PO, Drug Form: TAB, Dosing Weight 92.727, kg, Q4H, PRN Pain Score 4-6, Start date: 10/29/17 9:24:00 CDT, Duration: 30 day, Stop date: 11/28/17 9: 23:00 CDT Notes: Do not exceed 4gm/day of acetaminophen. (Same as: [place] 325/10) Start Date: 10/29/17 Stop Date: 10/30/17 Status: DiscontinuedNorco 5/325 oral tablet 1 tab, Route: PO, Drug Form: TAB, Dosing Weight 92.727, kg, Q4H, PRN Pain Score 1-3, Start date: 10/29/17 9:24:00 CDT, Duration: 30 day, Stop date: 11/28/17 9: 23:00 CDT Notes: (Same as: [place] 325/5) Do not exceed 4gm/day of acetaminophen. Start Date: 10/29/17 Stop Date: 10/30/17 Status: DiscontinuedOfirmev 1,000 mg, 2 tab, Route: PO, Drug form: TAB, Q8H, Dosing Weight 92.727, kg, for & gt; or=50 kg, Start date: 10/29/17 16:00:00 CDT, Duration: 30 day, Stop date: 8:00:00 CDT Notes: Max acetaminophen 4000 mg/day (4 gm/day). (Same as: Tylenol Extra Strength) Start Date: 10/29/17 Stop Date: 10/30/17 Status: DiscontinuedOfirmev 1,000 mg, 100 mL, Route: IV, Drug form: INJ, PRE OP, Start date: 10/29/17 0:00: 00 CDT, Duration: 1 day, Stop date: 10/29/17 23:59:00 CDT Notes: Infuse over 15 minutesDo not exceed 4gm/day of acetaminophen MEDICATION WASTE ProductSize: 1000 mgProduct Wasted: ___ mg Start Date: 10/29/17 Stop Date: 10/30/17 Status: Discontinuedondansetron 4 mg, Route: IVP, Drug form: INJ, Q8H, Dosing Weight 92.727, kg, PRN Nausea, Start date: 10/29/17 9:24:00 CDT, Duration: 30 day, Stop date: 11/28/17 9:23:00 CDT Start Date: 10/29/17 Stop Date: 10/29/17 Status: Deletedondansetron 4 mg, 1 tab, Route: PO, Drug form: TAB, Q8H, Dosing Weight 92.727, kg, PRN Nausea, Start date: 10/29/17 9:24:00 CDT, Duration: 30 day, Stop date: 11/28/17 9:23:00 CDT Notes: (Same as: Zofran) Start Date: 10/29/17 Stop Date: 10/30/17 Status: Discontinuedondansetron 4 mg oral tablet, disintegrating 4 mg, 1 tab, Route: PO, Drug form: TABDIS, Q8H, Dosing Weight 92.727, kg, Start date: 10/29/17 8:00:00 CDT, Duration: 30 day, Stop date: 11/28/17 0:00:00 CDT Notes: (Same as: Zofran ODT) Start Date: 10/29/17 Stop Date: 10/29/17 Status: DiscontinuedPeriactin 4 mg, 1 tab, Route: PO, Drug form: TAB, TID, Dosing Weight 92.727, kg, PRN Itching, Start date: 10/29/17 7:22:00 CDT, Duration: 30 day, Stop date: 7:21:00 CDT Notes: (Same As: Periactin) Start Date: 10/29/17 Stop Date: 10/30/17 Status: DiscontinuedPeriactin 4 mg, Route: PO, Drug form: TAB, TID, Dosing Weight 92.727, kg, PRN Itching, Start date: 10/29/17 7:22:00 CDT, Duration: 30 day, Stop date: 11/28/17 7:21:00 CDT Start Date: 10/29/17 Stop Date: 10/29/17 Status: Deletedpropofol (ANES) 10 mg Route: IV, Drug form: INJ, Start date: 10/29/17 7:05:00 CDT, Stop date: 8:05:00 CDT Start Date: 10/29/17 Stop Date: 10/29/17 Status: CompletedRestasis 1 drp, Route: BOTH EYES, Q12H, Drug form: DROP, Start date: 10/29/17 21:00:00 CDT, Duration: 30 day,Stop date: 11/28/17 9:00:00 CDT Notes: (Same as: Restasis) Start Date: 10/29/17 Stop Date: 10/30/17 Status: DiscontinuedRestasis 1 drp, BOTH EYES, Q12H, 0 Refill(s) Start Date: 10/15/17 Status: OrderedSaline Flush 0.9% 10 ml, Route: IVP, Drug Form: INJ, Dosing Weight 92.727, kg, PRN, PRN Line Flush , Start date: 10/29/17 9:24:00 CDT, Duration: 30 day, Stop date: 11/28/17 9:23: 00 CDT Notes: preservative free. Start Date: 10/29/17 Stop Date: 10/30/17 Status: DiscontinuedSaline Flush 0.9% 10 ml, Route: IVP, Drug Form: INJ, Dosing Weight 92.727, kg, Q12H, Start date: 10/29/17 21:00:00 CDT, Duration: 30 day, Stop date: 11/28/17 9:00:00 CDT Notes: preservative free. Start Date: 10/29/17 Stop Date: 10/30/17 Status: Discontinuedtramadol 50 mg oral tablet 50 mg=1 tab, PO, PRN, 0 Refill(s) Start Date: 10/15/17 Status: Orderedtramadol 50 mg oral tablet 100 mg, 2 tab, Route: PO, Drug form: TAB, Q6H, PRN Pain Score 6-10, Start date: 10/29/17 9:24:00 CDT, Duration: 30 day, Stop date: 11/28/17 9:23:00 CDT Notes: Not to exceed 400mg/day. (Same As: Ultram) Start Date: 10/29/17 Stop Date: 10/30/17 Status: Discontinuedtranexamic acid (ANES) 100 mg Route: IV, Drug form: INJ, Start date: 10/29/17 7:12:00 CDT, Stop date: 8:12:00 CDT Start Date: 10/29/17 Stop Date: 10/29/17 Status: Completedvancomycin 1.5 gm, 250 mL, Route: IVPB, Drug form: INJ, PRE OP, Start date: 10/29/17 0:00: 00 CDT, Duration: 1 day, Stop date: 10/29/17 23:59:00 CDT, ABX Indication: Surgical Prophylaxis Notes: TIME CRITICAL MEDICATIONSame as: Vancocin-NS (premixed)Infusion rate< 1000 mg: infuse over1 [id number] - 1500 mg: infuse over 1.5 [id number] - 2000 mg: infuse over 2 hours> 2001 mg: infuse over 2.5 hours Start Date: 10/29/17 Stop Date: 10/30/17 Status: Discontinuedvancomycin (ANES) 1.5 gm Route: IV, Drug form: INJ, Start date: 10/29/17 6:35:00 CDT, Stop date: 7:35:00 CDT Start Date: 10/29/17 Stop Date: 10/29/17 Status: Completedvancomycin (SCIP) + Sodium Chloride 0.9% IV 250 mL 1.25 gm, Route: IVPB, [id number], Dosing Weight 92.727, kg, Time Critical Medication, Start date: 10/29/17 18:30:00 CDT, Duration: 2 doses or times, Stop date: 10/30/17 6:30:00 CDT, Pharmacy to adjust dose for renal function, ABX Indication: Surgical Pro... Notes: TIME CRITICAL MEDICATION(Same As: Vancocin)Infusion rate< 1000 mg: infuse over 1 [id number] - 1500 mg: infuse over 1.5 [id number] - 2000 mg: infuse over 2 hours> 2001 mg: infuse over 2.5 hoursFor adult patients only: Round to nearest 250 mg per Medical Staff approval MEDICATION WASTE Product Size: 1000 mgProduct Wasted: ___ mg Start Date: 10/29/17 Stop Date: 10/30/17 Status: CompletedZofran ODT 4 mg, 1 tab, Route: PO, Drug form: TABDIS, PRE OP, Start date: 10/29/17 0:00:00 CDT, Duration: 1 day, Stop date: 10/29/17 23:59:00 CDT Notes: (Same as: Zofran ODT) Start Date: 10/29/17 Stop Date: 10/28/17 Status: DeletedZofran ODT 4 mg, Route: PO, PRE OP, Dosing Weight 92.727, kg, Start date: 10/29/17 6:00:00 CDT, Duration: 30 day, Stop date: 11/28/17 5:59:00 CDT Start Date: 10/29/17 Stop Date: 10/29/17 Status: Completed Results BLOOD BANK RESULTS Most recent to oldest [Reference Range]: 1 ABO/Rh A POS *Unknown* (10/29/17 5:18 AM) Antibody Scrn Negative (10/29/17 5:18 AM) ELECTROLYTES Most recent to oldest [Reference Range]: 1 Sodium Lvl [135-145 mEq/L] 144 mEq/L (10/30/17 6:20 AM) Potassium Lvl [3.5-5.1 mEq/L] 4.9 mEq/L (10/30/17 6:20 AM) Chloride Lvl [95-109 mEq/L] 110 mEq/L *HI* (10/30/17 6:20 AM) CO2 [24-32 mEq/L] 24 mEq/L (10/30/17 6:20 AM) AGAP [10.0-20.0 mEq/L] 14.9 mEq/L (10/30/17 6:20 AM) CHEM PANEL Most recent to oldest [Reference Range]: 1 Creatinine Lvl [0.50-1.40 mg/dL] 0.96 mg/dL (10/30/17 6:20 AM) eGFR 81 mL/min/1.73m2 1 *NA* (10/30/17 6:20 AM) BUN [7-22 mg/dL] 17 mg/dL (10/30/17 6:20 AM) B/C Ratio [6-25] 18 (10/30/17 6:20 AM) Glucose Lvl [70-99 mg/dL] 119 mg/dL *HI* (10/30/17 6:20 AM) Total Protein [6.4-8.4 g/dL] 5.7 g/dL *LOW* (10/30/17 6:20 AM) Albumin Lvl [3.5-5.0 g/dL] 2.9 g/dL *LOW* (10/30/17 6:20 AM) Globulin [2.7-4.2 g/dL] 2.8 g/dL (10/30/17 6:20 AM) A/G Ratio [0.7-1.6] 1.0 (10/30/17 6:20 AM) Calcium Lvl [8.5-10.5 mg/dL] 8.8 mg/dL (10/30/17 6:20 AM) ALT [0-65 unit/L] 20 unit/L (10/30/17 6:20 AM) AST [0-37 unit/L] 24 unit/L (10/30/17 6:20 AM) Alk Phos [39-136 unit/L] 75 unit/L (10/30/17 6:20 AM) Bili Total [0.2-1.3 mg/dL] 0.7 mg/dL (10/30/17 6:20 AM) 1Result Comment: The eGFR is calculated using the CKD-EPI formula. In most young , healthy individualsthe eGFR will be >90 mL/min/1.73m2. The eGFR declines with age. An eGFR of 60-89 may be normal insome populations, particularly the elderly, for whom the CKD-EPI formula has not been extensively validated. Use of the eGFR is not recommended in the following populations: Individuals with unstable creatinine concentrations, including patients and those with serious co-morbid conditions. Patients with extremes in muscle mass or diet. The data above are obtained from the National Kid[employer] Education Program ( NK[employer]) which additionally recommends that when the eGFR is used in patients with extremes of body mass index for purposesof drug dosing, the eGFR should be multiplied by the estimated BMI.HEMATOLOGY Most recent to oldest [Reference Range]: 1 WBC [3.7-10.4 K/CMM] 18.4 K/CMM *HI* (10/30/17 6:20 AM) RBC [4.70-6.10 M/CMM] 4.02 M/CMM *LOW* (10/30/17 6:20 AM) Hgb [14.0-18.0 g/dL] 12.1 g/dL *LOW* (10/30/17 6:20 AM) Hct [42.0-54.0 %] 35.6 % *LOW* (10/30/17 6:20 AM) MCV [80.0-94.0 fL] 88.6 fL (10/30/17 6:20 AM) MCH [27.0-31.0 pg] 30.1 pg (10/30/17:20 AM) MCHC [32.0-36.0 g/dL] 33.9 g/dL (10/30/17 6:20 AM) RDW [11.5-14.5 %] 13.3 % (10/30/17 6:20 AM) MPV [7.4-10.4 fL] 7.5 fL (10/30/17 6:20 AM) Platelet [133-450 K/CMM] 316 K/CMM (10/30/17 6:20 AM) Segs [45.0-75.0 %] 79.7 % *HI* (10/30/17 6:20 AM) Lymphocytes [20.0-40.0 %] 9.2 % *LOW* (10/30/17 6:20 AM) Monocytes [2.0-12.0 %] 10.8 % (10/30/17 6:20 AM) Eosinophils [0.0-4.0 %] 0.1 % (10/30/17 6:20 AM) Basophils [0.0-1.0 %] 0.2 % (10/30/17 6:20 AM) Segs-Bands # [1.5-8.1 K/CMM] 14.6 K/CMM *HI* (10/30/17 6:20 AM) Lymphocytes # [1.0-5.5 K/CMM] 1.7 K/CMM (10/30/17 6:20 AM) Monocytes # [0.0-0.8 K/CMM] 2.0 K/CMM *HI* (10/30/17 6:20 AM) BACTERIAL - SEROLOGY Most recent to oldest [Reference Range]: 1 MRSA by PCR Negative (10/15/17 12:41 PM) Immunizations Given and Recorded Vaccine Date Status Refusal Reason pneumococcal 23-valent vaccine 05/01/11 Given meningococcal polysaccharide vaccine 05/01/11 Given Procedures Procedure Date Related Diagnosis Body Site Status Appendectomy Completed Colonoscopy Completed Procedure1 Completed Procedure2 Completed Splenectomy Completed Tonsillectomy Completed 1Sinus [id number] eye surgeryt correct muscle imbalance x 2 Social History Social History Type Response Smoking Status Never smoker; Type: eCigarettes; Exposure to Tobacco Smoke None ; Cigarette Smoking Last 365 Days No; Reg Smoking Cessation Counseling No entered on: 10/29/17 Assessment and Plan Extracted from: Title: Anesthesia APMS Progress Note* Author: Gamaliel Gates MD Date: 10/30/17 0.1 Plan APMS Plan Discharge from [facility] care: Analgesics per Primary Service. Extracted from: Title: Clinical Document Author: Candido Evangelista Date: 10/30/17 Discharge Summary Hospital course: The patient is a 67 year old male who was admitted to the hospital for left hip osteoarthritis. The patient was found to have a severely arthritic left hip. Patient underwent a left t otal hip arthroplasty done through an anterior approach. There were no complications in surgery and patient tolerated the procedure well. The patient has been able to tolerate and manage pain with p.o . medications and has little to no nausea. The patient currently has minimal pain and no complications at this point. The patient will undergo further 1:1 physical therapy and as long as patient can v oid today can be expected to be discharged to home in stable condition. The patient was resting comfortably in a chair. The dressing was clean, dry and intact. Swelling was within normal limits. The calf was soft and nontender , plantar flexion and dorsiflexion were inta ct. Sensation was grossly intact distally. Distal pulses 2+ Surgical Procedures: 10/29/17 07:42 (P) LEFT MINI TOTAL HIP REPLACEMENT [id number] Primary Surgeon: Roman Beck MD (Service: ORT) Unilateral primary osteoarthritis, left hip (M16.12) Vital Signs (last 24 hrs) Last Charted Temp Oral 97.7 DegF (OCTOBER 30 04:12) Heart Rate Peripheral L 52bpm (OCTOBER 30 07:41) Resp Rate 16 BRMIN (OCTOBER 30 07:41) SBP 119 mmHg (OCTOBER 30 07:41) DBP 73 mmHg (OCTOBER 30 07:41) SpO2 94 % (OCTOBER 30 07:41) Labs (Last four charted values) WBC H 18.4 (OCTOBER 30) Hgb L 12.1 (OCTOBER 30) Hct L 35.6 (OCTOBER 30) Plt 316 (OCTOBER 30) Na 144 (OCTOBER 30) K 4.9 (OCTOBER 30) CO2 24 (OCTOBER 30) Cl H 110 (OCTOBER 30) Cr 0.96 (OCTOBER 30) BUN 17 (OCTOBER 30) Glucose Random H 119 (OCTOBER 30) Ca 8.8 (OCTOBER 30) Scheduled Meds (9): 10/29/17 acetaminophen (Ofirmev) 1,000 mg PO Q8H 10/30/17 aspirin (aspirin 325 mg tablet, enteric coated) 325 mg PO Daily 10/29/17 cycloSPORINE ophthalmic (Restasis) 1 drp BOTH EYES Q12H 10/29/17 docusate (docusate sodium 100 mg oral capsule) 100 mg PO BID 10/29/17 gabapentin (gabapentin 300 mg oral capsule) 300 mg PO Bedtime 10/30/17 meloxicam 15 mg PO Daily 10/29/17 mupirocin topical 1 appl NASAL Q12H 10/29/17 sodium chloride, hypertonic, ophthalmic (Biju 128 5% ophthalmic solution) 1 drp BOTH EYES BID 10/29/17 sodium chloride (Saline Flush 0.9%) 10 ml IVP Q12H PRN Meds (13): 10/29/17 acetaminophen-hydrocodone ([place] 10/325 oral tablet) 1 tab PO Q4H 10/29/17 acetaminophen-hydrocodone ([place] 10/325 oral tablet) 2 tab PO Q4H 10/29/17 acetaminophen-hydrocodone ([place] 5/325 oral tablet) 1 tab PO Q4H 10/29/17 bisacodyl 10 mg PO Daily 10/29/17 cyproheptadine (Periactin) 4 mg PO TID 10/29/17 diphenhydrAMINE (Benadryl) 25 mg PO TID 10/29/17 diphenhydrAMINE (Benadryl) 25 mg PO Bedtime 10/29/17 diphenhydrAMINE (Benadryl) 25 mg PO TID 10/29/17 morphine Sulfate 4 mg IVP Q6H 10/29/17 naloxone 0.1 mg IVP Q2MIN 10/29/17 ondansetron 4 mg PO Q8H 10/29/17 sodium chloride (Saline Flush 0.9%) 10 ml IVP PRN 10/29/17 tramadol (tramadol 50 mg oral tablet) 100 mg PO Q6H The patient was given postoperative instructions and education. They will follow up in clinic in 2 weeks for a post operative visit, sooner if needed. The patient will leave the Silverlon dressing on the incision site until follow-up in clinic. The patient was instructed to bring the new Silverlon dressing to the office for the 1st postoperative visit. The patient was made aware of discharge medic ation as well as to continue to use bilateral thigh-high kelton hose and SCD until follow-up. The patient will not drive until follow-up. X-rays will be taken at the 1st postoperative visit. From our [facility], the discharge diet will be regular as tolerated. Weight bearing: partial x 4 weeks Discharge medications: Aspirin 81 mg PO BID x30 days Gabapentin 300 mg QHS, can increase to BID PRN Meloxicam 15 mg PO QD x 30 days [place] 10/325 mg PO Q4-6H PRN for pain Cefadroxil 500 mg PO BID x 7 days Extracted from: Title: Clinical Document Author: Candido Evangelista Date: 10/29/17 Chief Complaint Mr. OLIVIER presents today complaining of left hip pain. Onset date June 2009. HPI Mr. OLIVIER is a 67 year male. He reports to this office today for evaluation of left hip pain. He describes the pain as sharp, stabbing with a level of 7 at its worst and 1-2 at its best on a scale of 0 to 10. It occurs when standing, exercise, stairs, walking, squatting, sitting , lifting and is constant . . He reports pain primarily in the groin area and also in the lumbar spine. He has worked with a chiropractor without significant symptom relief. Saw Dr. Montez last week for evaluation, but he was not a candidate for stem cell treatment. He reports no surgeries or injections previously to the left hip. Pain is progressively worsening and limiting quality of life and activities of daily living The patient has taken any medication for this problem. Medication(s) taken: Tramadol, which helped . He is also taking ibuprofen. He is currently using an assistive device. The device used is a cane. . Physical Exam/X-ray GENERAL: The patient is alert and oriented times three. Patient is of normal stature and appearing stated age. SKIN: Normal: Head, neck and extremity skin is intact without lesions and temperature is normal. LYMPHATIC: Normal. There is no evidence of lymphadenopathy noted in affected extremity. GAIT ANALYSIS: Antalgic gait pattern with a cane SENSORY: Normal sensory exam to light touch. MOTOR: Normal, motor strength is grossly intact. VASCULAR: Pulses are 2+ bilateral. Capillary refill is brisk. Skin turgor is good. There is no clubbing, cyanosis, or edema. VISUAL: No visual impairment LEG LENGTH: 5mm short on left operative leg RANGE OF MOTION: Left hip internal rotation 0 degrees external rotation 0 degrees hip flexion 90 degrees PHYSICAL EXAM: Left Hip Exam Mr. OLIVIER has no tenderness to palpation. ROM testing shows a severe decrease of IR, flexion, and extension and patient walks with an antalgic gait with a significant abductor lurch. Patient has decrea se abductor and hip flexion motor strength. The remainder of the exam is otherwise normal. Motor exam is normal with 5/5 muscle strength on manual motor testing. Reflexes are symmetric and normal. Sensory exam is normal in all dermatomes. XRAY: A/P pelvis were performed today in this office. The x-ray is of good quality and penetrance. Left [id number] arthritis is seen in the hip; global joint space narrowing with collapse of the femoral he ad; osteophyte formation on the lateral margin and the medial wall of the acetabulum as well as on the femoral head; no fractures or other lesions are noted. MRI was reviewed which showed severe left hip arthritis as well as a labral tear. Assessment 1. Never a smoker 2. Pain in pelvis (R10.2) 3. Primary osteoarthritis of left hip (M16.12) Orders 1. Tobacco Use Screening; Status:Complete 2. We recommend that you bring your body mass index down to 25.; Status:Complete Plan The patient presents today as a new patient for evaluation of left hip pain. This has been ongoing for many years. X-rays today show severe left hip arthritis with head collapse. We discussed treatment options going forward. I would not recommend any type of conservative management due to the advanced nature of his arthritis. I recommended a left total hip replacement and this is how he would like to proceed. All questions were answered today for the patient and his . We will proceed with a left mini total hip replacement possible conventional total hip replacement. At this point, we feel that this patient would be an excellent candidate for a LEFT Vilma MINI total hip replacement done through an anterior approach. The patient has endstage osteoarthritis and signif icant symptoms. We discussed with the patient that they may have limited weight bearing for 4-6 weeks after a Mini total hip arthorplasty depending on their bone quality. The patient has failed conservative treatment including pain medication or injection, assistive device/external joint support, and activity modification with either physical therapy or home exercise pro gram for greater than 12 weeks. Despite conservative treatment plan, patient continues to have pain with weight bearing activity, difficulty with ADLs, pain with passive ROM, impaired sleep, crepitus and swelling. The benefits and risks of surgery were discussed in great detail with the patient. We discussed complications to include: leg length discrepancy, dislocation, failure of hardware, infection, bleeding, t high numbness, damage to adjacent structure, and even . The patient voiced their understanding and wished to proceed. Vitals Vitals Panel Any falls in the past year?: No Any falls with injury in the past year?: No One fall without injury in the past year?: No Two or more falls in the past year?: No Height: 6 ft Weight: 200 lb BMI Calculated: 27.13 BSA Calculated: 2.13 Pain Scale: 2 Blood Pressure: 146 / 90 Allergies No Known Drug Allergies Current Meds CoQ10 100 MG Oral Capsule Glucosamine Chondroitin TABS Juice Plus Fibre Oral Liquid Multi Vitamin TABS Biju 128 SOLN [place] 3 CAPS Refresh Tears SOLN Restasis EMUL TraMADol HCl - 50 MG Oral Tablet Active Problems High cholesterol (E78.00) Left hip pain (M25.552) Osteoarthritis (M19.90) Over weight (E66.3) Past Medical History Hepatitis (K75.9) High blood pressure (I10) Surgical History Appendectomy History Of Prior Surgery Oral Surgery Tooth Extraction Tonsillectomy With Adenoidectomy Family History Problems Family history of hypertension (Z82.49) Family history of osteoporosis (Z82.62) Social History Alcohol use (Z78.9) alcohol: Rarely Never a smoker Occupation : Retired, 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 HEENT: no headache,no hoarseness,no vision problems,no hearing lossand no trouble swallowing. RESP: no coughandno difficulty breathing. CV: no chest painandno palpitations. GI: no abdominal pain,no blood in stool,no heartburn,no nauseaandno vomiting. ENDO: no excessive thirstandno temperature intolerance. SKIN: no skin problems,no easy bruisingandno easy bleeding. MUSC- SKEL: See HPI. NEURO: no convulsions,no dizziness,no numbnessandno tingling. : (+) urinary frequency, butno painful urinationandno blood in urine. PSYCH: no psychological disorderandno sleep disturbances.
[2018-09-17 14:29] LABS: Absolute Lymphocytes (CBC) 2.8 K/uL (0.7-4.9); Absolute Monocytes 1.2 K/uL (0.1-1.3); Absolute Neutrophil 4.1 K/uL (1.8-8.0); Basophils % 1.1 % (0-1.3); Eosinophils % 4.2 % (0-4.4); Hematocrit 41.2 % (39.6-49.0); Lymphocytes % 32.8 % (15.3-44.8); MPV 7.4 fL (7.6-11.3); Monocytes % 13.7 % (3.3-12.3)
[2018-09-17 14:59] LABS: ALT/SGPT 41 U/L (12-78); AST/SGOT 32 U/L (15-37); Albumin 3.6 g/dL (3.4-5.0); Alkaline Phosphatase 87 U/L (45-117); BUN Blood Urea Nitrogen 20 mg/dL (7-18); Bicarbonate 26 mmol/L (21-32); Bilirubin Total 0.6 mg/dL (0.2-1.0); Glucose Level 93 mg/dL (74-106); NT PRO-BNP 111 pg/mL (<125); Potassium 4.1 mmol/L (3.5-5.1); Protein, Total 7.2 g/dL (6.4-8.2); Sodium Level 140 mmol/L (136-145); Troponin (Emerg Dept Use Only) < 0.02 ng/mL (0.0-0.045)
--- NOTE | 2018-09-17 15:37 | RAD REPORT ---
EXAM DESCRIPTION: CT - Chest For Pe Angio - 09/17/2018 3:24 pm CLINICAL HISTORY: sob COMPARISON: None. TECHNIQUE: Dynamically enhanced axial 3 mm thick images of the chest were obtained during administra tion of <100> mL Isovue 370 IV contrast. Coronal and oblique reconstruction images were generated and reviewed. Exam utilizes a protocol for optimal evaluation of pulmonary arterial tree. Maximum intensity projections 3D imaging was utilized All CT scans are performed using dose optimization technique as appropriate and may include automated exposure control or mA/KV adjustment according to patient size. FINDINGS: Thrombus is present within the right interlobar pulmonary artery and right lower lobe and right upper lobe segmental pulmonary arteries. No thrombus is seen within the left, main, right main and left main pulmonary arteries. The ascending thoracic aorta is ectatic with an AP diameter 4.2 centimeters A pleural effusion is not seen. A pericardial effusion is not seen. Bilateral 5 millimeter lower lobe nodules. IMPRESSION: Right pulmonary emboli Bilateral 5 millimeter lower lobe nodules. If the patient is high risk per Fleischner guidelines foll owup CT in 1 year would be recommended
--- NOTE | 2018-09-17 17:14 | EKG ---
Test Date: 2018-09-17 Test Time: 14:00:26 Skin Installer: BASSAM MEASUREMENT RESULTS: Intervals: Rate: 63 AR: 214 QRSD: 146 QT: 432 QTc: 442 Bohannon: P: 49 AR: 214 QRS: 40 T: 36 INTERPRETIVE STATEMENTS: Sinus rhythm with 1st degree AV block Right bundle branch block Abnormal ECG Compared to ECG 10/02/2017 11:13:22 First degree AV block now present Sinus bradycardia no longer present Electronically Signed On 09-17-18 17:13:32 CDT by Phoenix Collins
--- NOTE | 2018-09-17 18:07 | ER ---
Nurse's Notes [facility] Name: Otto Sow Age: 68 yrs Sex: Male : 1950 Arrival Date: 09/17/2018 Time: 13:00 Bed 16 Private MD: Diagnosis: Bilateral Pulmonary Embolism Presentation: 09/17 13:08 Presenting complaint: Patient states: was sent from [facility] from [facility], was diagnosed with partially occlusive DVT 06/11 put on xarelto regimen in 08/13; yesterday, there was episode of SOB, US revealed acute on chronic occlusive DVT; requests to evaluate for PE; denies SOB on triage, denies chest pain;. Transition of care: patient was not received from another setting of care. Onset of symptoms was September 17, 2018. Risk Assessment: Do you want to hurt yourself or someone else? Patient reports no desire to harm self or others. Initial Sepsis Screen: Does the patient meet any 2 criteria? No. Patient's initial sepsis screen is negative. Does the patient have a suspected source of infection? No. Patient's initial sepsis screen is negative. Care prior to arrival: None. 13:08 Method Of Arrival: Ambulatory 13:08 Acuity: ZACHARY 3 Triage Assessment: 13:14 General: Appears in no apparent distress. uncomfortable, Behavior is calm, cooperative, hj appropriate for age. Pain: Denies pain. Historical: - Allergies: 13:13 No Known Allergies; hj - Home Meds: 13:13 Xarelto 15 mg oral tab daily [Active]; testosterone buccal buccal 1 buccal tab daily hj [Active]; Tramadol Oral [Active]; - PMHx: 13:13 DVT; hj - PSHx: 13:13 Appendectomy; hj - Immunization history:: Adult Immunizations not up to date. - Social history:: Smoking status: Patient/guardian denies using tobacco, Patient/guardian denies using alcohol. - Ebola Screening: : Patient negative for fever greater than or equal to 101.5 degrees Fahrenheit, and additional compatible Ebola Virus Disease symptoms Patient denies exposure to infectious person Patient denies travel to an Ebola-affected area in the 21 days before illness onset. Screenin:14 Abuse screen: Denies threats or abuse. Denies injuries from another. Nutritional hj screening: No deficits noted. Tuberculosis screening: No symptoms or risk factors identified. Fall Risk None identified. Assessment: 13:15 General: Appears in no apparent distress. well groomed, Behavior is calm, cooperative, tw2 appropriate for age. Pain: Denies pain. Neuro: Level of Consciousness is awake, alert, obeys commands, Oriented to person, place, time, situation. Cardiovascular: Denies chest pain, shortness of breath, Heart tones S1 S2 Capillary refill < 3 seconds Patient's skin is warm and dry. Respiratory: Airway is patent Respiratory effort is even, unlabored, Respiratory pattern is regular, symmetrical, Breath sounds are clear bilaterally. GI: Abdomen is round non-distended, Bowel sounds present X 4 quads. : No signs and/or symptoms were reported regarding the genitourinary system. EENT: Derm: No signs and/or symptoms reported regarding the dermatologic system. Musculoskeletal: Range of motion:. 14:48 Reassessment: Patient appears in no apparent distress at this time. No changes from tw2 previously documented assessment. Patient and/or family updated on plan of care and expected duration. Pain level reassessed. Patient is alert, oriented x 3, equal unlabored respirations, skin warm/dry/pink. 15:45 Reassessment: Patient appears in no apparent distress at this time. No changes from tw2 previously documented assessment. Patient and/or family updated on plan of care and expected duration. Pain level reassessed. Patient is alert, oriented x 3, equal unlabored respirations, skin warm/dry/pink. 16:45 Reassessment: Patient appears in no apparent distress at this time. No changes from tw2 previously documented assessment. Patient and/or family updated on plan of care and expected duration. Pain level reassessed. Patient is alert, oriented x 3, equal unlabored respirations, skin warm/dry/pink. 17:19 Reassessment: Patient appears in no apparent distress at this time. No changes from tw2 previously documented assessment. Patient and/or family updated on plan of care and expected duration. Pain level reassessed. Patient is alert, oriented x 3, equal unlabored respirations, skin warm/dry/pink. 18:20 Reassessment: Patient appears in no apparent distress at this time. No changes from tw2 previously documented assessment. Patient and/or family updated on plan of care and expected duration. Pain level reassessed. Patient is alert, oriented x 3, equal unlabored respirations, skin warm/dry/pink. 19:19 Reassessment: Patient appears in no apparent distress at this time. Patient and/or jd3 family updated on plan of care and expected duration. Pain level reassessed. Patient is alert, oriented x 3, equal unlabored respirations, skin warm/dry/pink. awaiting room assignment for admission. 20:00 Reassessment: Patient appears in no apparent distress at this time. No changes from jd3 previously documented assessment. Patient and/or family updated on plan of care and expected duration. Pain level reassessed. Patient is alert, oriented x 3, equal unlabored respirations, skin warm/dry/pink. 20:10 Reassessment: Patient appears in no apparent distress at this time. Patient and/or jd3 family updated on plan of care and expected duration. Pain level reassessed. Patient is alert, oriented x 3, equal unlabored respirations, skin warm/dry/pink. charge nurse notified of pt admission status. charge nurse attempted to contact distribution warehouse manager with no answer. attempted to call hospitalist with no answer. charge nurse notified. 20:26 Reassessment: syrup shed supervisor called again, house sup reported she would call the [facility]. 20:40 Reassessment: Patient appears in no apparent distress at this time. Patient and/or jd3 family updated on plan of care and expected duration. Pain level reassessed. Patient is alert, oriented x 3, equal unlabored respirations, skin warm/dry/pink. awaiting admission orders. 21:08 Reassessment: called for report, nurse reported to be busy. 2nd floor charge nurse kendra reported nurse would call back. 21:38 Reassessment: Patient appears in no apparent distress at this time. Patient and/or jd3 family updated on plan of care and expected duration. Pain level reassessed. Patient is alert, oriented x 3, equal unlabored respirations, skin warm/dry/pink. report called to Christina HURTADO. Vital Signs: 13:14 BP 139 / 80; Pulse 64; Resp 18; Temp 97.5(O); Pulse Ox 100% on R/A; Weight 92.99 kg; hj Height 6 ft. 0 in. (182.88 cm); Pain 0/10; 14:47 BP 139 / 80; Pulse 58; Resp 17; Pulse Ox 99% on R/A; tw2 15:44 BP 134 / 66; Pulse 69; Resp 17; Pulse Ox 99% on R/A; tw2 16:45 BP 136 / 66; Pulse 63; Resp 17; Pulse Ox 98% on R/A; tw2 17:19 BP 139 / 80; Pulse 56; Resp 17; Pulse Ox 100% on R/A; tw2 18:37 BP 141 / 67; Pulse 59; Resp 16; Pulse Ox 98% on R/A; tw2 19:20 BP 150 / 78; Pulse 80; Resp 18 S; Pulse Ox 97% on R/A; jd3 20:01 BP 127 / 64; Pulse 82; Resp 19 S; Pulse Ox 97% on R/A; jd3 20:41 BP 122 / 69; Pulse 83; Resp 18 S; Pulse Ox 98% on R/A; jd3 13:14 Body Mass Index 27.80 (92.99 kg, 182.88 cm) hj ED Course: 13:00 Patient arrived in ED. as 13:11 Triage completed. hj 13:14 Arm band placed on left wrist. hj 13:14 Patient has correct armband on for positive identification. Bed in low position. Call hj light in reach. Side rails up X 1. Adult w/ patient. 13:26 Juan Alberto Ascencio MD is Attending Physician. ps1 13:31 Nell Jorgensen RN is Primary Nurse. tw2 13:45 Radiology exam delayed due to lab results not completed at this time. (BUN/Creatinine). jg6 14:08 Inserted saline lock: 22 gauge in left forearm, using aseptic technique. Blood tw2 collected. 15:[address] via stretcher. sw 15:24 CT completed. Patient tolerated procedure well. Patient moved back from CT. sw 15:25 CT Chest For PE Angio In Process Unspecified. EDMS 16:05 Urine collected: clean catch specimen, clear, farida colored, Amount Voided: 100mL. jp3 18:05 Hamida Connelly MD is Hospitalizing Provider. ps1 19:02 Report given to GENESIS Gage. tw2 20:35 Primary Nurse role handed off by Nell Jorgensen RN ed1 20:57 Chadwick Perez RN is Primary Nurse. jd3 21:45 No provider procedures requiring assistance completed. Patient admitted, IV remains in jd3 place. Administered Medications: No medications were administered Outcome: 18:05 Decision to Hospitalize by Provider. ps1 21:46 Admitted to Tele accompanied by tech, via stretcher, room 220, with chart, Report jd3 called to Christina HURTADO 21:46 Condition: stable 21:46 Instructed on the need for admit, Demonstrated understanding of instructions. 21:47 Patient left the ED. j Signatures: Dispatcher [employer] Soumya Green Erika, RN RN ed1 Misa Farfan Henry, RN RN hj Nell Jorgensen, RN RN tw2 Chadwick Perez RN RN [email or web address] Juan Alberto Ascencio MD MD ps1 Lexx Marino Jessica [email or web address] Corrections: (The following items were deleted from the chart) 13:16 13:14 Pulse 64bpm; Resp 18bpm; Pulse Ox 100% RA; Temp 97.5F Oral; 92.99 kg; Height 6 hj ft. 0 in.; BMI: 27.8; Pain 0/10; hj 20:27 20:19 Reassessment: Patient appears in no apparent distress at this time. Patient jd3 and/or family updated on plan of care and expected duration. Pain level reassessed. Patient is alert, oriented x 3, equal unlabored respirations, skin warm/dry/pink. charge nurse notified of pt admission status. charge nurse attempted to contact distribution warehouse manager with no answer. attempted to call hospitalist with no answer. charge nurse notified. jd3 20:41 20:26 Reassessment: syrup shed supervisor called again, house sup report she would call the [facility]. jd3
--- NOTE | 2018-09-17 18:07 | EDPHYS ---
[facility] Name: Otto Sow Age: 68 yrs Sex: Male : 1950 Arrival Date: 09/17/2018 Time: 13:00 Bed 16 Private MD: ED Physician Juan Alberto Ascencio Historical: - Allergies: 09/17 13:13 No Known Allergies; hj - Home Meds: 13:13 Xarelto 15 mg oral tab daily [Active]; testosterone buccal buccal 1 buccal tab daily hj [Active]; Tramadol Oral [Active]; - PMHx: 13:13 DVT; hj - PSHx: 13:13 Appendectomy; hj - Immunization history:: Adult Immunizations not up to date. - Social history:: Smoking status: Patient/guardian denies using tobacco, Patient/guardian denies using alcohol. - Ebola Screening: : Patient negative for fever greater than or equal to 101.5 degrees Fahrenheit, and additional compatible Ebola Virus Disease symptoms Patient denies exposure to infectious person Patient denies travel to an Ebola-affected area in the 21 days before illness onset. Vital Signs: 13:14 BP 139 / 80; Pulse 64; Resp 18; Temp 97.5(O); Pulse Ox 100% on R/A; Weight 92.99 kg; hj Height 6 ft. 0 in. (182.88 cm); Pain 0/10; 14:47 BP 139 / 80; Pulse 58; Resp 17; Pulse Ox 99% on R/A; tw2 15:44 BP 134 / 66; Pulse 69; Resp 17; Pulse Ox 99% on R/A; tw2 16:45 BP 136 / 66; Pulse 63; Resp 17; Pulse Ox 98% on R/A; tw2 17:19 BP 139 / 80; Pulse 56; Resp 17; Pulse Ox 100% on R/A; tw2 18:37 BP 141 / 67; Pulse 59; Resp 16; Pulse Ox 98% on R/A; tw2 19:20 BP 150 / 78; Pulse 80; Resp 18 S; Pulse Ox 97% on R/A; jd3 20:01 BP 127 / 64; Pulse 82; Resp 19 S; Pulse Ox 97% on R/A; jd3 20:41 BP 122 / 69; Pulse 83; Resp 18 S; Pulse Ox 98% on R/A; jd3 13:14 Body Mass Index 27.80 (92.99 kg, 182.88 cm) MDM: 13:29 Patient medically screened. ps1 09/17 13:29 Order name: CBC with Diff; Complete Time: 14:36 ps1 09/17 13:29 Order name: CMP; Complete Time: 15:01 ps1 09/17 13:29 Order name: Troponin (emerg Dept Use Only); Complete Time: 15:01 ps1 09/17 13:29 Order name: BNP; Complete Time: 15:01 ps1 09/17 13:29 Order name: CT Chest For PE Angio; Complete Time: 16:15 ps1 09/17 16:41 Order name: Urine Dipstick--Ancillary (enter results); Complete Time: 19:03 kj1 09/17 13:29 Order name: EKG - Nurse/Tech; Complete Time: 14:08 ps1 09/17 13:32 Order name: EKG; Complete Time: 13:32 tw2 09/17 13:32 Order name: IV Start; Complete Time: 14:08 tw2 Administered Medications: No medications were administered Disposition: 09/17/18 18:05 Hospitalization ordered by Hamida Connelly for Inpatient Admission. Preliminary diagnosis is Bilateral Pulmonary Embolism. - Bed requested for Telemetry/MedSurg (Inpatient). - Status is Inpatient Admission. jd3 - Condition is Stable. - Problem is new. - Symptoms are unchanged. UTI on Admission? No Signatures: Dispatcher [employer] EDMS Lauri Tran RN RN Yojana Richard RN RN Nell Jorgensen RN RN 2 Chadwick Perez RN RN jJuan Alberto Bernabe MD MD ps1 Corrections: (The following items were deleted from the chart) 18:10 18:05 Hospitalization Ordered by Hamida Connelly MD for Inpatient Admission. Preliminary ps1 diagnosis is Bilateral Pulmonary Embolism. Bed requested for Telemetry/MedSurg (Inpatient). Status is Inpatient Admission. Condition is Stable. Problem is new. Symptoms are unchanged. UTI on Admission? No. ps1 20:15 18:10 09/17/2018 18:05 Hospitalization Ordered by Hamida Connelly MD for Inpatient cg Admission. Preliminary diagnosis is Bilateral Pulmonary Embolism. Bed requested for Telemetry/MedSurg (Inpatient). Status is Inpatient Admission. Condition is Stable. Problem is new. Symptoms are unchanged. UTI on Admission? No. ps1 21:47 20:15 09/17/2018 18:05 Hospitalization Ordered by Hamida Connelly MD for Inpatient jd3 Admission. Preliminary diagnosis is Bilateral Pulmonary Embolism. Bed requested for Telemetry/MedSurg (Inpatient). Status is Inpatient Admission. Condition is Stable. Problem is new. Symptoms are unchanged. UTI on Admission? No. cg
[2018-09-17 18:28] LABS: Urine Blood NEGATIVE (NEG); Urine Glucose NEGATIVE (NEG); Urine Protein NEGATIVE (NEG)
[2018-09-17 22:07] VITALS: BMI 27.8
[2018-09-18] MEDS ORDERED: MORPHINE 2 MG/ML SYR IV PRN (01:25)
[2018-09-18] MEDS ORDERED: ACETAMINOPHEN 500 MG TAB PO PRN (01:25)
[2018-09-18] MEDS ORDERED: ONDANSETRON 4 MG/2 ML VIAL IV PRN (01:25)
[2018-09-18] MEDS ORDERED: APIXABAN 5 MG TABLET PO SCH ×2 (01:30→06:00)
[2018-09-18] MEDS ORDERED: APIXABAN 5 MG TABLET PO ONE (02:00)
[2018-09-18] MEDS: NA CHLORIDE 0.9% 1,000 ML IV SCH ×2 (02:11→15:29)
[2018-09-18 06:31] LABS: Absolute Lymphocytes (CBC) 2.5 K/uL (0.7-4.9); Absolute Monocytes 1.3 K/uL (0.1-1.3); Absolute Neutrophil 5.9 K/uL (1.8-8.0); Basophils % 0.9 % (0-1.3); Eosinophils % 3.6 % (0-4.4); Hematocrit 40.9 % (39.6-49.0); Lymphocytes % 24.6 % (15.3-44.8); MPV 7.2 fL (7.6-11.3); Monocytes % 12.6 % (3.3-12.3); RBC Red Blood Cell Count 4.54 M/uL (4.33-5.43)
[2018-09-18 06:54] LABS: Albumin 3.5 g/dL (3.4-5.0); Bilirubin Total 0.4 mg/dL (0.2-1.0); Potassium 4.8 mmol/L (3.5-5.1); Protein, Total 6.8 g/dL (6.4-8.2)
[2018-09-18] MEDS ORDERED: PNEUMOCOCCAL VACCINE 0.5 ML IMVAC ONE (07:00)
[2018-09-18] MEDS: APIXABAN 5 MG TABLET PO SCH ×2 (08:25→22:01)
--- NOTE | 2018-09-18 09:24 | P.HP ---
Certification for Inpatient Patient admitted to: Observation With expected LOS: <2 Midnights Patient will require the following post-hospital care: None Practitioner: I am a practitioner with admitting privileges, knowledge of patient current condition, hospital course, and medical plan of care. Services: Services provided to patient in accordance with Admission requirements found in Title 42 Section 412.3 of the Code of Federal Regulations Patient History Date of Service: 09/17/18 Reason for admission: DVT and pulmonary embolism History of Present Illness: Patient is a 68-year-old gentleman who came into the hospital from [facility]. He was found have a DVT on June 11 and he was started on Xarelto. Yesterday he had episode of shortness of breath. Ultrasound showed a chronic DVT. He was in the ER for evaluation for a pulmonary embolism which was confirmed with CT PE protocol. Patient is admitted to the hospital for further treatment. Allergies No Known Allergies Allergy (Verified 09/17/18 21:55) Home Medications: Cyclosporine [Restasis] 1 gtt EACH EYE BID 01/25/15 Tramadol HCl [Ultram] 1 tab PO Q6HR PRN 01/25/15 Acetaminophen [Tylenol Extra Strength] 1 tab PO Q6HR PRN 09/17/18 Bergamot Bpf 2 pill PO DAILY 09/17/18 Bio Cmp 2 pill PO BID 09/17/18 Carboxymethyl/Glycerin/Poly80 [Refresh Optive Advanced Drops] 1 drop EACH EYE PRN PRN 09/17/18 Enterogenic Intensive 1 pill PO DAILY 09/17/18 Ferrochel 1 pill PO TID 09/17/18 Panel Machine Operator-Multi 1 pill PO BID 09/17/18 Omegavail 1 pill PO DAILY 09/17/18 Prostate B 3 pill PO DAILY 09/17/18 Synovx Djd 1 pill PO BID 09/17/18 Vitamin D3 With K2 Liquid 5 drops PO DAILY 09/17/18 - Past Medical/Surgical History Has patient received pneumonia vaccine in the past: No Diabetic: No -: Arthritis -: HTN -: Migraines -: varicose veins -: eye surgery x 2 -: right knee surgery -: appendectomy -: spleen surgery -: tonsilectomy - Family History Mother Medical History: Lung disease Notes: OA, macular degeneration Father Medical History: Heart disease - Social History Smoking Status: Never smoker Alcohol use: No Place of Residence: Home Review of Systems 10-point ROS is otherwise unremarkable Physical Examination - Vital Signs Temperature: 98.5 F Blood Pressure: 130/59 Pulse: 68 Respirations: 18 Pulse Ox (%): 98 - Physical Exam General: Alert, In no apparent distress, Oriented x3 HEENT: Atraumatic, PERRLA, Mucous membr. moist/pink, EOMI, Sclerae nonicteric Neck: Supple, 2+ carotid pulse no bruit, No LAD, Without JVD or thyroid abnormality Respiratory: Clear to auscultation bilaterally, Normal air movement Cardiovascular: Regular rate/rhythm, Normal S1 S2, No murmurs Gastrointestinal: Normal bowel sounds, Soft and benign, Non-distended, No tenderness Musculoskeletal: No clubbing, No swelling, No tenderness Integumentary: No rashes Neurological: Normal gait, Normal speech, Normal strength at 5/5 x4 extr, Normal tone, Sensation intact, Cranial nerves 3-12 intact, Normal affect Lymphatics: No axilla or inguinal lymphadenopathy - Studies Laboratory Data (last 24 hrs) 09/17/18 13:50: Sodium 140, Potassium 4.1, BUN 20 H, Creatinine 1.09, Glucose 93 , Total Bilirubin 0.6, AST 32, ALT 41, Alkaline Phosphatase 87 09/17/18 13:50: WBC 8.5, Hgb 13.7, Hct 41.2, Plt Count 329 Assessment & Plan - Problems (Diagnosis) (1) DVT (deep venous thrombosis) Current Visit: Yes Status: Acute (2) Pulmonary emboli Current Visit: Yes Status: Acute (3) Long-term current use of testosterone cypionate Current Visit: Yes Status: Acute - Plan PLAN: 1. IV hydration 2. Echocardiogram 3. Anticoagulation 4. Pain control 5. GI/DVT prophylaxis Discharge Plan: Home Plan to discharge in: Greater than 2 days - Advance Directives Does patient have a Living Will: Yes Does patient have a Durable POA for Healthcare: Yes - Code Status/Comfort Care Code Status Assessed: Yes Code Status: Full Code Critical Care: No Time Spent Managing PTS Care (In Minutes): 45
--- NOTE | 2018-09-18 14:37 | P.PN ---
Subjective Date of Service: 09/18/18 Chief Complaint: DVT and pulmonary embolism Subjective: Improving Patient seen and examined at bedside. No family at bedside. Chart reviewed and case discussed with nursing staff. Pt admitted for bilateral PE, denies any shortness of breath, chest pain, dizziness, headache, vision changes. Denies any lower extremity pain. states he feels great. Review of Systems 10-point ROS is otherwise unremarkable Physical Examination - Vital Signs Temperature: 97.8 F Blood Pressure: 134/61 Pulse: 62 Respirations: 18 Pulse Ox (%): 96 - Physical Exam General: Alert, In no apparent distress, Oriented x3 HEENT: Atraumatic, PERRLA, EOMI Neck: Supple, JVD not distended Respiratory: Clear to auscultation bilaterally, Normal air movement Cardiovascular: Regular rate/rhythm, Normal S1 S2 Gastrointestinal: Normal bowel sounds, No tenderness Musculoskeletal: No tenderness Integumentary: No rashes Neurological: Normal speech, Normal tone, Normal affect Lymphatics: No axilla or inguinal lymphadenopathy - Studies Laboratory Data (last 24 hrs) 09/17/18 13:50: Sodium 140, Potassium 4.1, BUN 20 H, Creatinine 1.09, Glucose 93 , Total Bilirubin 0.6, AST 32, ALT 41, Alkaline Phosphatase 87 Assessment And Plan - Current Problems (Diagnosis) (1) DVT (deep venous thrombosis) Current Visit: Yes Status: Acute Qualifiers: DVT location: lower extremity Affected thrombotic vein of extremity: unspecified vein of extremity Chronicity: chronic Laterality: bilateral Qualified Code(s): I82.503 - Chronic embolism and thrombosis of unspecified deep veins of lower extremity, bilateral (2) Long-term current use of testosterone cypionate Current Visit: Yes Status: Acute (3) Pulmonary emboli Current Visit: Yes Status: Acute Qualifiers: Pulmonary embolism type: unspecified Chronicity: acute Acute cor pulmonale presence: without acute cor pulmonale Qualified Code(s): I26.99 - Other pulmonary embolism without acute cor pulmonale (4) Hypertension Current Visit: No Status: Chronic Qualifiers: Hypertension type: essential hypertension Qualified Code(s): I10 - Essential (primary) hypertension - Plan DVT (deep venous thrombosis) Pulmonary emboli Continue anticoagulation with elliquis ECHO ordered, pending IV hydration Long-term current use of testosterone cypionate DVT prophylaxis: see above GI prophylaxis: None Diet: Heart healthy Disposition: Possible discharge home in the next 24-48 hrs after ECHO Discharge Plan: Home Plan to discharge in: 24 Hours - Code Status/Comfort Care Code Status Assessed: No Critical Care: No Time Spent Managing PTS Care (In Minutes): 45
[2018-09-19] MEDS: NA CHLORIDE 0.9% 1,000 ML IV SCH (04:29)
[2018-09-19 06:38] LABS: Absolute Lymphocytes (CBC) 2.7 K/uL (0.7-4.9); Absolute Monocytes 1.4 K/uL (0.1-1.3); Absolute Neutrophil 5.2 K/uL (1.8-8.0); Eosinophils % 4.5 % (0-4.4); Lymphocytes % 27.3 % (15.3-44.8); MPV 7.2 fL (7.6-11.3); Monocytes % 14.1 % (3.3-12.3); RBC Red Blood Cell Count 4.69 M/uL (4.33-5.43)
[2018-09-19 06:55] LABS: Albumin 3.3 g/dL (3.4-5.0); Bilirubin Total 0.6 mg/dL (0.2-1.0); Potassium 4.7 mmol/L (3.5-5.1); Protein, Total 6.9 g/dL (6.4-8.2)
--- NOTE | 2018-09-19 07:46 | ECHO ---
HEIGHT: 6 ft 0 in WEIGHT: 205 lb 0 oz DATE OF STUDY: 09/18/[address]: Hamida Connelly MD 2-DIMENSIONAL: YES M.MODE: YES DOPPLER: YES COLOR FLOW: YES TDS: NO PORTABLE: NO DEFINITY: NO BUBBLE STUDY: NO DIAGNOSIS: BILATERAL PE CARDIAC HISTORY: CATHERIZATION: NO SURGERY: NO PROSTHETIC VALVE: NO PACEMAKER: NO MEASUREMENTS (cm) DIASTOLIC (NORMALS) SYSTOLIC (NORMALS) IVSd 1.0 (0.6-1.2) LA Diam 4.2 (1.9-4.0) LVEF 60-65% LVIDd 4.1 (3.5-5.7) LVIDs 1.8 (2.0-3.5) %FS % LVPWd 1.0 (0.6-1.2) Ao Diam (2.0-3.7) 2 DIMENSIONAL ASSESSMENT: RIGHT ATRIUM: NORMAL LEFT ATRIUM: DILATED RIGHT VENTRICLE: NORMAL LEFT VENTRICLE: NORMAL TRICUSPID VALVE: NORMAL MITRAL VALVE: NORMAL PULMONIC VALVE: NORMAL AORTIC VALVE: SCLEROSIS PERICARDIAL EFFUSION: NONE AORTIC ROOT: NORMAL LEFT VENTRICULAR WALL MOTION: NORAML DOPPLER/COLOR FLOW: MILD MITRAL AND TRICUSPID REGURGITATION. NORMAL RIGHT VENTRICULAR SYSTOLIC PRESSURE. NO AORTIC STENOSIS OR AORTIC REGURGITATION. COMMENTS: NORMAL LEFT VENTRICULAR EJECTION FRACTION. DILATED LEFT ATRIUM. AORTIC SCLEROSIS WITH NO AORTIC STENOSIS OR AORTIC REGURGITATION. MILD MITRAL AND TRICUSPID REGURGITATION. TECHNOLOGIST: Ray ALEXANDER
[2018-09-19] MEDS: APIXABAN 5 MG TABLET PO SCH (07:57)
--- NOTE | 2018-09-19 11:38 | P.SSS ---
Patient History Date of Service: 09/19/18 Primary Care Provider: Dr. Brito Reason for admission: DVT and pulmonary embolism History of Present Illness: Patient is a 68-year-old gentleman who came into the hospital from [facility]. He was found have a DVT on June 11 and he was started on Xarelto. Yesterday he had episode of shortness of breath. Ultrasound showed a chronic DVT. He was in the ER for evaluation for a pulmonary embolism which was confirmed with CT PE protocol. Patient is admitted to the hospital for further treatment. Allergies Allergies No Known Allergies Allergy (Verified 09/17/18 21:55) Home Medications: Cyclosporine [Restasis] 1 gtt EACH EYE BID 01/25/15 Tramadol HCl [Ultram] 1 tab PO Q6HR PRN 01/25/15 Acetaminophen [Tylenol Extra Strength] 1 tab PO Q6HR PRN 09/17/18 Bergamot Bpf 2 pill PO DAILY 09/17/18 Bio Cmp 2 pill PO BID 09/17/18 Carboxymethyl/Glycerin/Poly80 [Refresh Optive Advanced Drops] 1 drop EACH EYE PRN PRN 09/17/18 Enterogenic Intensive 1 pill PO DAILY 09/17/18 Ferrochel 1 pill PO TID 09/17/18 C Consultant-Multi 1 pill PO BID 09/17/18 Omegavail 1 pill PO DAILY 09/17/18 Prostate B 3 pill PO DAILY 09/17/18 Synovx Djd 1 pill PO BID 09/17/18 Vitamin D3 With K2 Liquid 5 drops PO DAILY 09/17/18 Apixaban [Eliquis] 5 mg PO DIRECTED #70 tablet 09/19/18 - Past Medical/Surgical History Has patient received pneumonia vaccine in the past: No Diabetic: No -: Arthritis -: HTN -: Migraines -: varicose veins -: eye surgery x 2 -: right knee surgery -: appendectomy -: spleen surgery -: tonsilectomy - Family History Mother -: Lung disease Notes: OA, macular degeneration Father -: Heart disease - Social History Smoking Status: Never smoker Alcohol use: No Place of Residence: Home Review of Systems 10-point ROS is otherwise unremarkable Physical Examination - Vital Signs Temperature: 97.8 F Blood Pressure: 124/58 Pulse: 63 Respirations: 20 Pulse Ox (%): 94 - Physical Exam General: Alert, In no apparent distress, Oriented x3 HEENT: Atraumatic, PERRLA, Mucous membr. moist/pink, EOMI, Sclerae nonicteric Neck: Supple, 2+ carotid pulse no bruit, No LAD, Without JVD or thyroid abnormality Respiratory: Clear to auscultation bilaterally, Normal air movement Cardiovascular: Regular rate/rhythm, Normal S1 S2 Gastrointestinal: Normal bowel sounds, No tenderness Musculoskeletal: No tenderness Integumentary: No rashes Neurological: Normal gait, Normal speech, Normal strength at 5/5 x4 extr, Normal tone, Normal affect Lymphatics: No axilla or inguinal lymphadenopathy - Diagnosis (Problem(s)) (1) DVT (deep venous thrombosis) Current Visit: Yes Status: Acute Qualifiers: DVT location: lower extremity Affected thrombotic vein of extremity: unspecified vein of extremity Chronicity: chronic Laterality: bilateral Qualified Code(s): I82.503 - Chronic embolism and thrombosis of unspecified deep veins of lower extremity, bilateral (2) Long-term current use of testosterone cypionate Current Visit: Yes Status: Acute (3) Pulmonary emboli Current Visit: Yes Status: Acute Qualifiers: Pulmonary embolism type: unspecified Chronicity: acute Acute cor pulmonale presence: without acute cor pulmonale Qualified Code(s): I26.99 - Other pulmonary embolism without acute cor pulmonale (4) Hypertension Current Visit: No Status: Chronic Qualifiers: Hypertension type: essential hypertension Qualified Code(s): I10 - Essential (primary) hypertension Treatment Summary: Patient was admitted for deep vein thrombosis and CT confirmed pulmonary emboli. He was started on anticoagulation with Eliquis. An echo was ordered, did not show any evidence of right ventricular strain. He did well throughout the stay. No evidence of active bleeding, labs remained stable and he remained hemodynamically stable. He was tolerating a regular diet, ambulating without any concerns. Prior to discharge, he denied any shortness of breath, chest pain , vision changes, headaches, dizziness, syncopal/presyncopal episodes or lightheadedness. He he will be discharged on Eliquis 10 mg twice a day to complete a 7 day course then switched to 5 mg twice a day. Prescription sent to the pharmacy. He will follow up his primary care physician in 2-3 days - Disposition Discharge Date: 09/19/18 Disposition: ROUTINE DISCHARGE Condition: GOOD Patient Discharge Instructions: Please follow up with the primary care physician in 2-3 days. Please return to the emergency room for worsening symptoms. New medications: Eliquis, blood thinner Diet: AHA Activity: Ad jose a Time Spent Managing Pts Care (In Minutes): 55
[2018-09-19 13:29] VITALS: O2SAT 98
[2018-09-19 14:53] VITALS: BP 134/68; TEMP 97.2
== END 2018-09-19 14:03 | disposition home or self-care (01) ==
LOC: ER 12:58 → ERHOLD 18:51 → 2ND 21:23
PROVIDERS: ADMIT Family Medicine; ATTEND Hospitalist
DX: I82.403 Acute embolism and thrombosis of unspecified deep veins of lower extremity, bilateral (principal); I26.99 Other pulmonary embolism without acute cor pulmonale; I10 Essential (primary) hypertension; M19.90 Unspecified osteoarthritis, unspecified site
CPT/HCPCS: 93005; 93306; 85025 ×3; 36415 ×2; 81003; 84484; 80053 ×3; 83880; 71275; 99285; Q9967; J7030 ×3; G0378 ×2; 90670